=== PATIENT | female | born 1955 | race Caucasian/White ===

== ENCOUNTER → 2018-03-03 15:15 | Outpatient (CLI) | payer OTHER, SELFPAY | PROVIDERS: Visit Provider Obstetrics & Gynecology | DX: Z12.4 Encounter for screening for malignant neoplasm of cervix (principal) | CPT/HCPCS: 88175; G0145 ==

== ENCOUNTER 2025-05-04 10:26 | Day surgery (SDC) | payer MEDICARE, OTHER, SELFPAY ==
[2025-05-04] VITALS (11 sets, daily range): BP systolic 97–134; BP diastolic 65–91; PULSE 82–89; RESP 16; TEMP 36.1–36.6; O2SAT 92–100; BMI 40.8
--- NOTE | 2025-05-04 10:43 | PCM.PRE.AN2 ---
ASA Classification* ASA Classification ASA Classification: 2 Assessment & Plan Anesthesia* Anesthesia Assessment Anesthesia Assessment: Discussed sedation and/or anesthesia options, risks, benefits, and alternatives with patient/parents/legal guardian/POA. Questions invited. The patient/parents/legal guardian/POA seems to understand and agrees to proceed with anesthesia plan. Reviewed the physical assessment, medical history, allergy history and patient home medications list prior to surgery/procedure/anesthetic and documented any changes. Performed airway and anesthesia risk assessments. 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 When Was Last Pacemaker Check QUESTION #4 FULL TEXT: You/Your Family Experience fever (hyperthermia) with Anesthesia Last Oral Intake Last Oral intake: Last Oral Intake NPO since Meds taken in AM with sips of water? Meds patient instructed to take am of surgery PONV PONV - technical services assistant: PONV - technical services assistant Female Yes 04/28/25 15:26 HX of Motion Sickness Yes 04/28/25 15:26 HX of N/V After Surgery Yes 04/28/25 15:26 Non-Smoker Yes 04/28/25 15:26 Duration of Surgery greater Yes 04/28/25 15:26 than 60 minutes Number of Risk Factors 5 04/28/25 15:26 PONV Score Severe Risk 04/28/25 15:26 Height & Weight Height & Weight: Anesthesia: Height & Weight Height 5 ft 4 in 04/21/25 08:51 Respiratory Assessment Respiratory Assessment - technical services assistant: Respiratory Tract Infection Hx - technical services assistant Hx Respiratory Tract Infection No 04/28/25 15:26 STOP Sleep Apnea STOP Sleep Apnea - technical services assistant: STOP Sleep Apnea - technical services assistant Hx Hypertension Yes: CONTROLLED ON MED 04/28/25 15:26 Hx Sleep Apnea No 04/28/25 15:26 CPAP BIPAP Do you snore loudly (louder Yes 04/28/25 15:26 than talking or can be heard Do you often feel tired/ No 04/28/25 15:26 fatigued/ sleepy during daytime? Has anyone observed you stop No 04/28/25 15:26 breathing during sleep? STOP Results Positive 04/28/25 15:26 QUESTION #5 FULL TEXT : Do you snore loudly (louder than talking or can be heard through closed doors)? 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 Specify any problems Hx of Preganancy in last 3 No 04/28/25 15:26 Months Nurse Filling Out Transfusion VCHRISTIN 04/28/25 15:26 & Questions: Date: 04/28/25 04/28/25 15:26 Time: 15:27 04/28/25 15:26 Patient unable to answer at this time (ie. confused, unrespo /Reproduction History /Reproductive History - technical services assistant: /Reproductive Hx- technical services assistant Hx Now No 04/28/25 15:26 Gestational Age (in weeks): EDC: Hx Hx Para Hx Section SAB No 04/28/25 15:26 Active Medications Active Medications: Current Medications Generic Name Dose Route Start Last Admin Trade Name Freq PRN Reason Stop Dose Admin Cefazolin Sodium 2 gm/ Sodium 110 mls @ 200 mls/hr 05/04/25 12:45 Chloride IV 05/04/25 13:17 INTRAOP ONE Lactated Ringer's 1,000 mls @ 15 mls/hr 05/04/25 10:45 IV .Q48H LASHAWN PFSH Medical History Wears glasses Post-menopausal Cancer Depression Seizures Gastric reflux Non-smoker Shortness of breath on exertion Chronic cough Leg cramps Thyroid disease Acid reflux HTN (hypertension) Home Medications ?Medication ?Instructions ?Recorded ?Last Taken ?Type eye vitamins/variety 1 tab PO DAILY 04/21/25 Unknown History levothyroxine 100 mcg capsule 100 mcg PO QDAY 04/21/25 Unknown History lisinopril 10 mg tablet 10 mg PO 1700 04/21/25 Unknown History lisinopril 20 mg tablet 20 mg PO QDAY 04/21/25 Unknown History metaluka vitamins 1 tab PO DAILY 04/21/25 Unknown History vitamin B comp and C no.3 15 mg-10 1 cap PO QDAY 04/21/25 Unknown History mg-50 mg-5 mg-300 mg capsule (B Complex Plus Vitamin C) Allergy/AdvReac Type Severity Reaction Status Date / Time No Known Allergies Allergy Verified 04/28/25 15:11 Family History Mother Breast cancer Hypertension Sister Diabetes Thyroid disorder Hypertension Surgical History Hx of tonsillectomy Hx of eye surgery H/O: hysterectomy Social History Smoking Status: Never smoker alcohol intake: never Review of Systems (Anesthesia) ROS Narrative System reviewed and no additional complaints, except as documented.
--- OUTSIDE RECORDS SUMMARY | 2025-05-04 10:54 | XMS RPT_ITS | CCD ---
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 Unclassified (13 sources) MCR Well Adult - In general the patient feels well with no complaints. The patient has a balanced diet. The patient exercises none (Active) and sleeps 8 hours per night. The patient denies having trouble with bathing, dressing/grooming, toileting, preparing meals and ambulating. The patient denies having trouble with grocery shopping, driving, use of telephone, housework, laundry, preparing/taking medications and finances. The patient does not perform monthly breast self exam. 05-25-2024 Unclassified (5 sources) Follow up for multiple chronic conditions - The patient is here for follow-up of GERD, hypertension, hypothyroidism, obesity and seizure disorder. The patient always takes the prescribed medications. No side effects noted. The patient engages in regular exercise program 1-3 times per week. The patient's out of office blood pressure checks occur rarely. The patient states that they do not have headaches. Note for Multiple chronic conditions follow-up: reviewed by [facility] 11-16-2024 Past or Other Problems Problem Classification Problem Date Documented Da te Episodic/Chronic Unclassified (18 sources) MCR Well Adult - In general the patient feels well with minor complaints (complains of diarrhea for the past two days.), has good energy level and is sleeping well. The patient has a balanced diet and takes supplemental vitamins. The patient does not exercise and sleeps 7 hours per night. The patient denies having trouble with bathing, dressing/grooming, toileting, preparing meals and ambulating. The patient denies having trouble with grocery shopping, driving, use of telephone, housework, laundry, preparing/taking medications and finances. The patient performs monthly self breast exam (is past due for mammogram). The patient has a Healthcare Power of Global Program Manager and a Living Will. 05-26-2023 Unclassified (18 sources) Well Adult, female - The patient feels well with no complaints, has good energy level and is sleeping well. The patient has a balanced diet and takes supplemental vitamins. The patient does not exercise. The patient sleeps 8 hours per night. 05-15-2022 Unclassified (18 sources) Preoperative Clearance - Surgical procedure(s) planned: other (Has a diagnosis of Glaucome, treatment plan: trabeculectomy.). Date of procedure: (06-21-20) Surgeon: (Dr Dale) and Location of procedure: ([facility]) Note for Pre-operative clearance: reviewed by [facility] 06-07-2020 Unclassified (18 sources) Preoperative Clearance - Surgical procedure(s) planned: other (glaucoma surgery revision). Date of procedure: (10-04-19) Location of procedure: ([facility]) There have been no problems with general anesthesia or blood/blood products. Prosthetics include eye glasses. Note for Pre-operative clearance: reviewed by [facility] 09-29-2019 Unclassified (18 sources) Preoperative Clearance - Surgical procedure(s) planned: other (Glaucoma). Date of procedure: (01/04/19) Surgeon: (Dr. Dale) and Location of procedure: ([facility]) There have been no problems with general anesthesia or blood/blood products. Prosthetics include eye glasses. Note for Pre-operative clearance: reviewed by [facility] 12-28-2018 Unclassified (8 sources) Transition into care - The patient is transitioning into care from a hospital and a summary of care was reviewed . 04-05-2016 Unclassified (8 sources) [ADDITIONAL REASON] Follow up consultation - The patient is here to follow-up after hospitalization ([facility]. Had total hysterectomy due to Uterine Cancer. Was hving Post [place] bleeding. SHe had this done 03/11/[address] Castano. She has a f/u visit with him on Friday but ptstates she neds nothing further done.). There is a family history of breast cancer (mom and father had lung cancer.). Note for Consultation follow-up: Pt denies any lower abdominal discomfort and incision healed well. They did give her a back brace to wear which she does wear most of time. reviewed by [facility] 04-05-2016 Unclassified (18 sources) Vaginal bleeding - The bleeding has been occurring in an intermittent pattern for 1 week. The bleeding has been described as spotting. The symptoms have been associated with abdominal cramps (on the first day of spotting.) and hot flashes (at times), while the symptoms have not been associated with dizziness. Note for Vaginal bleeding: Menopause was 10 years ago. reviewed by [facility] 01-03-2016 Unclassified (18 sources) Abdominal pain - The onset of the abdominal pain has been acute and has been occurring in a persistent pattern for 1 week. The course has been recurrent. The pain is described as a moderate sharp pain, dull ache and cramping. The pain is located in the epigastrium (area varies). The symptoms are aggravated by meals (2 to 4 hours after eating) but have no relieving factors. There has been no associated nausea or vomiting (a week ago x 3.). Note for Abdominal pain: reviewed by [facility] 11-29-2015 Unclassified (18 sources) Preoperative Clearance - Surgical procedure(s) planned: other (Cataract). Date of procedure: (07-27-14) Surgeon: (Dr Kayla Dale.) and Location of procedure: ([facility] be done at [facility] There have been no problems with general anesthesia or blood/blood products. Prosthetics include eye glasses. Note for Pre-operative clearance: reviewed by [facility] 07-13-2014 Unclassified (18 sources) seizure disorder - Would like form filled out to continue driving. Has hx of seizures for many years but well controlled. It has malina years since last seizure. Last seizure 2000, on no meds for many years 07-04-2010 Unclassified (10 sources) Follow up consultation - The patient is here to follow-up after hospitalization ([facility]. Had total hysterectomy due to Uterine Cancer. Was hving Post [place]ap[place]a bleeding. SHe had this done 03/11/[address] Castano. She has a f/u visit with him on Friday but ptstates she neds nothing further done.). There is a family history of breast cancer (mom and father had lung cancer.). Note for Consultation follow-up: Pt denies any lower abdominal discomfort and incision healed well. They did give her a back brace to wear which she does wear most of time. reviewed by B 04-05-2016 Unclassified (10 sources) [ADDITIONAL REASON] Transition into care - The patient is transitioning into care from a hospital and a summary of care was reviewed . 04-05-2016 Results Test Name Value Interpretation Reference Range Facility Supplemental Reporton 2024 Supplemental Report . Pathology Reports Accession: Collected Date/Time: Received Date/Time: Pathologist: [id number] 04/12/2025 13:50 EDT 04/13/2025 09:50 EDT GIOVANI WONG MD Supplemental Report SUPPLEMENTAL: [facility] [address] [place] [address] HER2 FISH Analysis Clinical summary and Indication: Body Site: Comment: FINAL HER2 INTERPRETATION: In conjunction with the equivocal (2+) HER2 Immunostain result provided, the final HER2 interpretation of this specimen is NEGATIVE (in accordance with ASCO/CAP guidelines). HER2 FISH Results: Interpretation: Negative Number of tumor cells counted: 20 + 20 Number of observers: 2 Average HER2 Copy number: 2.48 Average CEP17 copy number: 2.15 Ratio of average HER2/CEP17: 1.2 Sample adequate for analysis: Yes Complete report scanned into chart. Verified by Diagnostic interpretation performed at [facility] GIOVANI WONG Sign out Date: 05/02/2025 16:09 Performing Lab: [facility], [address] [place] [address] Pathology Dept Final Surgical Pathology Report DIAGNOSIS: LEFT BREAST MASS AT 10:00, NEEDLE CORE BIOPSY: - INVASIVE GRADE 1 DUCTAL CARCINOMA Breast Biomarker Reporting Template TEST(S) PERFORMED: ESTROGEN RECEPTOR (ER) STATUS: POSITIVE (greater than 10% of cells demonstrate nuclear positivity) PERCENTAGE OF CELLS WITH NUCLEAR POSITIVITY: 91-100% AVERAGE INTENSITY OF STAINING: Strong PROGESTERONE RECEPTOR (PGR) STATUS: POSITIVE PERCENTAGE OF CELLS WITH NUCLEAR POSITIVITY: 81-90% AVERAGE INTENSITY OF STAINING: Strong HER2 BY IMMUNOHISTOCHEMISTRY: EQUIVOCAL (Score 2+) COLD ISCHEMIA AND FIXATION TIMES: Meet requirements specified in latest version of the ASCO / CAP Guidelines, unless otherwise specified in the gross description. COMMENT(S): Test types for ER, KS and Her2: All FDA cleared, Vendor: [id number]. Primary antibody clones: ER: SP1, KS:1E2, Her2:4B5; Detection system: [employer] Pathology Reports Accession: Collected Date/Time: Received Date/Time: Pathologist: [id number] 04/12/2025 13:50 EDT 04/13/2025 09:50 EDT GIOVANI WONG MD DIAGNOSIS: If specimens were decalcified, loss of immunoreactivity may occur; negative results should be interpreted with caution. Isolated KS positivity (in the absence of ER staining) at low levels is not a reproducible result, could be an artifact, and may not be clinically significant. Invasive carcinomas with 1 to 10% of cells staining for ER (not PgR) are reported as Low Positive and the following comment is applicable: There are limited data on the overall benefit of endocrine therapies for patients with low level (1-10%) ER expression but they currently suggest possible benefit, so patients are considered eligible for endocrine treatment. There are data that suggest invasive cancers with these results are heterogeneous in both behavior and biology and often have gene expression profiles more similar to ER negative cancers. [employer] NURSE TUMOR BLOCK(S): 1 COMMENT: [facility]# [id number] CLINICAL INFORMATION: 4 B- MODERATE SUSPICION FOR MALIGNANCY LEFT BREAST AT SITE OF PRIOR BX IN 2011 SPECIMEN: A LEFT BREAST MASS 10:00 POSITION GROSS DESCRIPTION: All parts labelled with patient name and [id number] Received in formalin labeled L breast at 10 o'clock position are 6 noel-pink cores and fragments ranging in size from 0.8 to 1.9 cm. Specimen removed from patient at 1350 p.m. and placed in formalin fixative at 1350 p.m. Cold ischemia time is less than 1 minute and total time in formalin fixative is 35.5 hours. TS-2 Kristin Gastelum, Grossing Personnel Manager/ Dr. Giovani Wong, Pathologist Performed by Kristin Gastelum MICROSCOPIC DESCRIPTION: The microscopic examination is performed, except in the case of Gross Only. Verified by Pathology Report verified by [facility] GIOVANI WONG Sign out Date: 04/15/2025 13:20 Performing Lab: [facility], [address] [place] [address] Pathology Dept Disclaimer If ancillary studies were utilized, the following Laboratory Developed Test (LDT) disclaimer will apply: Under CLIA requirements, [facility] is qualified to perform high complexity testing. For all ancillary stains, positive and negative controls stain appropriately. Performance characteristics of immunohistochemical and chromogenic in-situ hybridization tests have been determined by [facility]. These tests are used for clinical purposes, They should not be regarded as investigational or for research. Normal [facility] MA[facility] Surgery Visit Reporton 04-21 Surgery Visit Report [facility] [address] [place] [address] [address] [place] [id number] OFFICE VISIT Date of Service: 04/21/25 MR#: [id number] Acct: [id number] Name: JESSICA ARMENDARIZ Rep #: [id number] : 1955 Provider: Dr. Mohan thompson MD Age/Sex: 69/F Location: [facility] Status: Signed Intake Vital Signs 04/21/25 08:51 Height 5 ft 4 in Weight: 241 lb BMI 41.3 BP 134/90 H Blood Pressure Location Rt brachial Position Sitting Respiration 17 Pulse 87 Pulse Source Monitor Pulse Oximetry (%) 98 Oxygen Delivery Method room air Intake Visit Reasons: DISCUSS BREAST SURGERY Chief Complaint: discuss breast surgery Is patient in pain?: No Allergies No Known Allergies Allergy (Verified 04/21/25 08:53) Medications ???Medication ???Instructions ???Recorded ???Confirmed ???Type eye vitamins/variety PO 04/21/25 History levothyroxine 100 mcg capsule 100 mcg PO QDAY 04/21/25 04/21/25 History lisinopril 10 mg tablet 10 mg PO QDAY 04/21/25 04/21/25 Hi story lisinopril 20 mg tablet 20 mg PO QDAY 04/21/25 04/21/25 Hi story metaluka vitamins PO 04/21/25 04/21/25 History vitamin B comp and C no.3 15 mg-10 1 cap PO QDAY 04/21/25 04/21/25 History mg-50 mg-5 mg-300 mg capsule (B Complex Plus Vitamin C) Have you fallen in the past year?: No PFSH Medical History (Updated 04/21/25 @ 08:50 by Mayela Frias) Thyroid disease Acid reflux HTN (hypertension) Surgical History (Updated 04/21/25 @ 08:50 by Mayela Frias) H/O: hysterectomy Family History (Updated 04/21/25 @ 08:51 by Mayela Frias) Mother Breast cancer Hypertension Sister Diabetes Thyroid disorder Hypertension Social History (Updated 04/21/25 @ 08:51 by Mayela Frias) Smoking Status: Never smoker alcohol intake: never HPI HPI HPI: Patient is a 69-year-old female with left breast cancer. Patient was biopsied at outside hospital and found to have invasive ductal carcinoma of the left breast at the 10 o'clock position. Patient notes that she does have a family history of breast cancer in her mother who at a young age. She has had a breast biopsy in the past as well. ROS General General: Yes breast cancer; No weight change, appetite, fatigue, colon cancer or weakness HEENT HEENT: Yes eye surgery; No difficulty swallowing, eye injury, swollen glands or hoarseness Endo Endocrine: Yes thyroid disease; No diabetes mellitus, thyroid cancer, Hair loss, heat intolerance or cold intolerance Skin Skin: No rash or changing moles Breast Breast: Yes left breast lump and abnormal US; No right breast lump, nipple discharge, breast pain, abnormal mammogram or breast enlargement Additional Details: Left breast cancer invasive ductal Musc Musculoskeletal: No back problems, arthritis, rheumatoid arthritis, gout or joint pain Cardio Cardiovascular: Yes high blood pressure; No murmur, pacemaker, heart disease, atrial fibrillation, heart attack, heart stent, palpitations, shortness of breath with exertion or chest pain Psych Psychiatric: No depression, anxiety or hearing voices Resp Respiratory: No shortness of breath, No sleep apnea, No cough, No COPD, No asthma, No emphysema and No wheezing Gastro Gastrointestinal: No abdominal pain, No nausea or vomiting, No diarrhea, No constipation, No blood in stool, Yes acid reflux, No hemorrhoids, No ulcers, No gallbladder problem and No black,tarry stools Bao Hematologic: No blood thinners, No blood disorders, No bleeding, No anemia and No blood clots Neuro Neurologic: No system reviewed and no additional complaints, except as documented, No as per HPI, No abnormal gait, No abnormal hearing, No abnormal movements, No abnormal speech, No behavioral changes, No burning sensations, No confusion, No convulsions, No disequilibrium, No dizziness, No localized weakness, No frequent falls, No headache(s), No lack of coordination, No loss of vision, No memory loss, No numbness, No other visual disturbances, No radicular pain, No restless legs, No sensory deficit, No syncope, No tingling, No tremor(s), No weakness and No other Exam Const General: cooperative Orientation: alert and oriented x3 HENWA Head: normal to inspection Neck Neck: normal visual inspection and full ROM Chest Chest palpation inspection: normal inspection of the chest Resp Effort Inspection: normal respiratory effort Auscultation: clear to auscultation bilaterally Cardio Rate: regular rate Rhythm: regular rhythm GI Inspection: non-distended Palpation: soft and nontender Skin General: no rashes or lesions noted Neuro General: patient alert and patient oriented x3 Extrem General: full ROM Psych Appearance: grossly normal Mental Status: mental status grossly normal (more content not included)... Normal [facility] Final Surgical Pathology Rep [facility] 04-15-2025 Final Surgical Pathology Report . Pathology Reports Accession: Collected Date/Time: Received Date/Time: Pathologist: [id number] 04/12/2025 13:50 EDT 04/13/2025 09:50 EDT GIOVANI WONG MD Final Surgical Pathology Report DIAGNOSIS: LEFT BREAST MASS AT 10:00, NEEDLE CORE BIOPSY: - INVASIVE GRADE 1 DUCTAL CARCINOMA Breast Biomarker Reporting Template TEST(S) PERFORMED: ESTROGEN RECEPTOR (ER) STATUS: POSITIVE (greater than 10% of cells demonstrate nuclear positivity) PERCENTAGE OF CELLS WITH NUCLEAR POSITIVITY: 91-100% AVERAGE INTENSITY OF STAINING: Strong PROGESTERONE RECEPTOR (PGR) STATUS: POSITIVE PERCENTAGE OF CELLS WITH NUCLEAR POSITIVITY: 81-90% AVERAGE INTENSITY OF STAINING: Strong HER2 BY IMMUNOHISTOCHEMISTRY: EQUIVOCAL (Score 2+) COLD ISCHEMIA AND FIXATION TIMES: Meet requirements specified in latest version of the ASCO / CAP Guidelines, unless otherwise specified in the gross description. COMMENT(S): Test types for ER, KS and Her2: All FDA cleared, Vendor: [id number]. Primary antibody clones: ER: SP1, KS:1E2, Her2:4B5; Detection system: [employer] If specimens were decalcified, loss of immunoreactivity may occur; negative results should be interpreted with caution. Isolated KS positivity (in the absence of ER staining) at low levels is not a reproducible result, could be an artifact, and may not be clinically significant. Invasive carcinomas with 1 to 10% of cells staining for ER (not PgR) are reported as Low Positive and the following comment is applicable: There are limited data on the overall benefit of endocrine therapies for patients with low level (1-10%) ER expression but they currently suggest possible benefit, so patients are considered eligible for endocrine treatment. There are data that suggest invasive cancers with these results are heterogeneous in both behavior and biology and often have gene expression profiles more similar to ER negative cancers. [employer] NURSE TUMOR BLOCK(S): 1 COMMENT: [facility]# [id number] CLINICAL INFORMATION: 4 B- MODERATE SUSPICION FOR MALIGNANCY LEFT BREAST AT SITE OF PRIOR BX IN 2011 SPECIMEN: A LEFT BREAST MASS 10:00 POSITION GROSS DESCRIPTION: All parts labelled with patient name and [id number] Received in formalin labeled L breast at 10 o'clock position are 6 noel-pink cores and fragments ranging in size from 0.8 to 1.9 cm. Specimen removed from patient at 1350 p.m. and placed in formalin fixative at 1350 p.m. Cold ischemia time is less than 1 minute and total time in formalin fixative is 35.5 hours. TS-2 Pathology Reports Accession: Collected Date/Time: Received Date/Time: Pathologist: [id number] 04/12/2025 13:50 EDT 04/13/2025 09:50 GIOVANI CASTELLANO MD GROSS DESCRIPTION: Kristin Gastelum Grossing Personnel Manager/ Dr. Giovani Wong, Pathologist Performed by Kristin Gastelum MICROSCOPIC DESCRIPTION: The microscopic examination is performed, except in the case of Gross Only. Verified by Pathology Report verified by [facility] GIOVANI WONG Sign out Date: 04/15/2025 13:20 Performing Lab: [facility], [address] [place] [address] Pathology Dept Disclaimer If ancillary studies were utilized, the following Laboratory Developed Test (LDT) disclaimer will apply: Under CLIA requirements, [facility] Laboratory is qualified to perform high complexity testing. For all ancillary stains, positive and negative controls stain appropriately. Performance characteristics of immunohistochemical and chromogenic in-situ hybridization tests have been determined by [facility]. These tests are used for clinical purposes, They should not be regarded as investigational or for research. Normal [facility] MA[facility] LT MAMM CLIP PLACEMENTon LT MAMM CLIP PLACEMENT [address] ? [place] [address] ? Patient: JESSICA ARMENDARIZ Phone#: : 1955 Age: 69 Gender: F Pt. Type: Out Account: [id number] Location: [facility] Ordering: PIETRO LITTLEJOHN Exam Date: 04/12/2025/14:28 Family Phys: Charge Code: [id number] Physician: Whiteside Order #: [id number] Dose#: PROCEDURE: LEFT MAMMOGRAM CLIP PLACEMENT COMPARISON: [facility], , 3D UNILAT LT DIAGNOSTIC, 03/21/2025, 10:09. INDICATIONS: S/P LEFT BREAST CORE BIOPSY FINDINGS: LEFT BREAST: A ribbon shaped metallic marker is present in the superomedial breast. There is an adjacent barbell shaped biopsy marker from prior biopsy. CONCLUSION: Postprocedure mammogram for biopsy marker placement PLEASE NOTE: CLICK HERE IF HIGH RISK A NORMAL MAMMOGRAM DOES NOT EXCLUDE THE POSSIBILITY OF BREAST CANCER. A CLINICALLY SUSPICIOUS PALPABLE LUMP SHOULD BE BIOPSIED. THIS FACILITY UTILIZES A REMINDER SYSTEM TO ENSURE THAT ALL PATIENTS RECEIVE REMINDER LETTERS FOR APPOINTMENTS. THIS INCLUDES REMINDERS FOR ROUTINE MAMMOGRAMS, DIAGNOSITC MAMMOGRAMS, OR OTHER BREAST IMAGING INTERVENTIONS WHEN APPROPRIATE. THIS PATIENT WILL BE PLACED IN THE APPROPRIATE REMINDER SYSTEM. Dictated by: Kelsey Alegria MD on 04/12/2025 at 16:42 Approved by: Kelsey Alegria MD on 04/12/2025 at 16:43 Normal [facility] US CORE BX BREAST LEFT 1ST L ESIONon 04-12-2025 US CORE BX BREAST LEFT 1ST LESION [address] ? [place], [place] [address] ? Patient: JESSICA ARMENDARIZ Phone#: : 1955 Age: 69 Gender: F Pt. Type: Out Account: [id number] Location: [facility] Ordering: PIETRO LITTLEJOHN Exam Date: 04/12/2025/12:47 Family Phys: Charge Code: [id number] Physician: Whiteside Order #: [id number] Dose#: This report includes an Addendum and supersedes previous reports for this exam. PROCEDURE: PERCUTANEOUS LT BREAST ULTRASOUND GUIDED BIOPSY COMPARISON: None. INDICATIONS: Left breast mass DESCRIPTION: After explaining the procedure and risks to the patient, informed consent was obtained. Ultrasound was used to localize the lesion. The skin was marked. The skin was prepped and draped in the usual sterile fashion. An ultrasound-guided biopsy was performed in the usual sterile manner with tissue marker placement. FINDINGS: SPECIMEN #, LOCATION: Lesion in the 10 o'clock position measuring 1.3 x 1.4 cm. Six passes were performed. BIOPSY NEEDLE: 12 gauge Achieve? core biopsy needle. MARKERS(S) PLACED: A single ribbon shaped metallic marker was placed in the appropriate targeted location. MEDICATION: 2% lidocaine with epinephrine administered locally. 2% lidocaine administered superficially. COMPLICATIONS: None. PATHOLOGY LAB: Specimen submitted to pathology. CONCLUSION: Uneventful ultrasound-guided breast biopsy. The patient was instructed to obtain follow up care and biopsy results from the referring physician. An addendum to this report will be provided with radiological-pathologica l correlation after the pathology results are available. Dictated by: Kelsey Alegria MD on 04/12/2025 at 16:32 Approved by: Kelsey Alegria MD on 04/12/2025 at 16:42 ADDENDUM: Continued Report - Page 2 of 2 Patient: JESSICA ARMENDARIZ Phone#: : 1955 Age: 69 Gender: F Pt. Type: Out Account: [id number] Location: 052 Ordering: [facility] Exam Date: 04/12/2025/12:47 Family Phys: Charge Code: [id number] Physician: Whiteside Order #: [id number] Dose#: The pathology report is now available and shows malignancy (invasive grade 1 ductal carcinoma) concordant with the imaging findings. Dictated by: Kelsey Alegria MD on 04/20/2025 at 13:30 Approved by: Kelsey Alegria MD on 04/20/2025 at 13:32 Normal [facility] 3D MAMM UNILAT LT DIAGNOSTIC on 03-21-2025 3D MAMM UNILAT LT DIAGNOSTIC [place] [address] Patient: JESSICA ARMENDARIZ Phone#: : 1955 Age: 69 Gender: F Pt. Type: Out Account: [id number] Location: 052 Ordering: [facility] Exam Date: 03/21/2025/10:09 Family Phys: Charge Code: [id number] Physician: Whiteside Order #: [id number] Dose#: PROCEDURE: LEFT DIAGNOSTIC BREAST TOMOSYNTHESIS MAMMOGRAM WITH CAD COMPARISON: [facility], 3D BILAT SCREEN, 03/09/2025, 11:13. INDICATIONS: Abnormal mammogram BREAST COMPOSITION: The breasts are almost entirely fatty FINDINGS: DIAGNOSTIC CATEGORY 0--INCOMPLETE: NEED ADDITIONAL IMAGING EVALUATION. LEFT BREAST: ARCHITECTURAL DISTORTION (the normal architecture is distorted without a visible mass), characterized by spiculated suspicious morphology, mid-breast depth, 10 o'clock position, and 15 x 13 x 17 mm size. Dense central calcification is present measuring 8 x 6 millimeters. RECOMMENDATIONS: ULTRASOUND: LEFT BREAST --We will call the patient back for an ultrasound and provide an additional report. PLEASE NOTE: A NORMAL MAMMOGRAM DOES NOT EXCLUDE THE POSSIBILITY OF BREAST CANCER. A CLINICALLY SUSPICIOUS PALPABLE LUMP SHOULD BE BIOPSIED. THIS FACILITY UTILIZES A REMINDER SYSTEM TO ENSURE THAT ALL PATIENTS RECEIVE REMINDER LETTERS FOR APPOINTMENTS. THIS INCLUDES REMINDERS FOR ROUTINE MAMMOGRAMS, DIAGNOSITC MAMMOGRAMS, OR OTHER BREAST IMAGING INTERVENTIONS WHEN APPROPRIATE. THIS PATIENT WILL BE PLACED IN THE APPROPRIATE REMINDER SYSTEM. Dictated by: Charlotte Walsh MD on 03/22/2025 at 12:40 Approved by: Charlotte Walsh MD on 03/22/2025 at 12:46 Normal [facility] US BREAST LT UNILATERAL COMP LETEon 03-21-2025 US BREAST LT UNILATERAL [place] [address] Patient: JESSICA ARMENDARIZ Phone#: : 1955 Age: 69 Gender: F Pt. Type: Out Account: [id number] Location: [facility] Ordering: PIETRO LITTLEJOHN Exam Date: 03/21/2025/10:31 Family Phys: Charge Code: [id number] Physician: Whiteside Order #: [id number] Dose#: PROCEDURE: ULTRASOUND BREAST LT COMPARISON: None. INDICATIONS: Follow up mammogram. TECHNIQUE: Breast ultrasound was performed, with evaluation focusing on all four quadrants. FINDINGS: DIAGNOSTIC CATEGORY 4b-MODERATE SUSPICION FOR MALIGNANCY; SUSPICIOUS LEFT BREAST: Solid suspicious-appearing lesion, hypoechoic echotexture, mid-breast depth, 10 o'clock position, and 17 x 19 x 17 mm size. Central 7 x 9 x 8 millimeter calcification is present. Prior exams are not available for comparison. RECOMMENDATIONS: ULTRASOUND-GUIDED CORE BIOPSY: LEFT BREAST This report was communicated by telephone to Dr. Pietro Littlejohn at the dictation time indicated below. PLEASE NOTE: A NORMAL MAMMOGRAM DOES NOT EXCLUDE THE POSSIBILITY OF BREAST CANCER. A CLINICALLY SUSPICIOUS PALPABLE LUMP SHOULD BE BIOPSIED. Dictated by: Charlotte Walsh MD on 03/22/2025 at 12:48 Approved by: Charlotte Walsh MD on 03/22/2025 at 14:17 [facility] 3D MAMM BILAT SCREENon 03-09 3D MAMM BILAT SCREEN [address] [address] Patient: JESSICA ARMENDARIZ Phone#: : 1955 Age: 69 Gender: F Pt. Type: Out Account: [id number] Location: [facility] Ordering: PIETRO LITTLEJOHN Exam Date: 03/09/2025/11:13 Family Phys: Charge Code: [id number] Physician: Whiteside Order #: [id number] Dose#: PROCEDURE: BILATERAL SCREENING BREAST TOMOSYNTHESIS MAMMOGRAM WITH CAD COMPARISON: None. INDICATIONS: Screening. BREAST COMPOSITION: The breasts are almost entirely fatty FINDINGS: DIAGNOSTIC CATEGORY 0--INCOMPLETE: NEED ADDITIONAL IMAGING EVALUATION. LEFT BREAST: A metallic marker is present in the superomedial breast. Calc markers present within an area of XL calcification. There is spiculated density the radiating from the area of calcification. RIGHT BREAST: No significant suspicious finding. RECOMMENDATIONS: ADDITIONAL MAMMOGRAPHIC VIEWS REQUIRED: LEFT BREAST --We will call the patient back for additional views and issue an addendum report. ULTRASOUND: LEFT BREAST indicated depending on the results of the diagnostic mammogram. PLEASE NOTE: A NORMAL MAMMOGRAM DOES NOT EXCLUDE THE POSSIBILITY OF BREAST CANCER. A CLINICALLY SUSPICIOUS PALPABLE LUMP SHOULD BE BIOPSIED. THIS FACILITY UTILIZES A REMINDER SYSTEM TO ENSURE THAT ALL PATIENTS RECEIVE REMINDER LETTERS FOR APPOINTMENTS. THIS INCLUDES REMINDERS FOR ROUTINE MAMMOGRAMS, DIAGNOSITC MAMMOGRAMS, OR OTHER BREAST IMAGING INTERVENTIONS WHEN APPROPRIATE. THIS PATIENT WILL BE PLACED IN THE APPROPRIATE REMINDER SYSTEM. Dictated by: Kelsey Alegria MD on 03/09/2025 at 18:26 Approved by: Kelsey Alegria MD on 03/09/2025 at 18:35 Normal [facility] TSHon 11-17-2024 TSH Qn 0.71 m[IU]/L Normal 0.40-4.50 [facility] Comment on above: Performed By: #### 8 99 #### [facility] [address], [address] [place] [phone] Engineer Intern: Tyson Claudio MD Laboratory - Chemistry and C hemistry - challengeon 11-16-2024 TSH Qn 0.71 m[IU]/L Normal 0.40 - 4.50 {mIU/L} [facility] TSHon 09-02-2024 TSH Qn 0.19 m[IU]/L Low 0.40-4.50 [facility] Comment on above: Performed By: #### 8 99 #### [facility] [address], [address] [place] [address] Engineer Intern: Tyson Claudio MD Laboratory - Chemistry and C hemistry - challengeon 09-01-2024 TSH Qn 0.19 m[IU]/L Abnormal 0.40 - 4.50 {mIU/L} [facility] COMPREHENSIVE METABOLIC PANE [facility], [place]) 05-20-2024 Albumin [Mass/Vol] 4.2 g/dL Normal 3.6-5.1 [facility] Comment on above: Performed By: #### 8 , 0, 53543 #### [facility] [place] [address] Engineer Intern: Tyson Claudio MD #### XLPB #### [facility] [address] Engineer Intern: Elis Moses M.D. Albumin/Globulin [Mass ratio] 1.5 {ratio} Normal 1.0-2.5 [facility] Comment on above: Performed By: #### 8 , 0, 09538 #### [facility] [place] [address] Engineer Intern: Tyson Claudio MD #### XLPB #### [facility] [address] [place] [phone] Engineer Intern: Elis Moses M.D. ALP [Catalytic activity/Vol] 63 U/L Normal 37-153 [facility] Comment on above: Performed By: #### 8 , 7599, [address]65 #### [facility] [address], [address] [place] [address] Engineer Intern: Tyson Claudio MD #### XLPB #### [facility] [address] [place] [phone] Engineer Intern: Elis Moses M.D. ALT [Catalytic activity/Vol] 21 U/L Normal 6-29 [facility] Comment on above: Performed By: #### 8 99, 7600, 73345 #### [facility] [address], [address] [place] [address] Engineer Intern: Tyson Claudio MD #### XLPB #### [facility] [address] [place] [phone] Engineer Intern: Elis Moses M.D. AST [Catalytic activity/Vol] 17 U/L Normal 10-35 [facility] Comment on above: Performed By: #### 8 99, 0, 29902 #### [facility] [address], [address] [place] [address] Engineer Intern: Tyson Claudio MD #### XLPB #### [facility] [address] [place] [phone] Engineer Intern: Elis Moses M.D. Bilirubin [Mass/Vol] 0.5 mg/dL Normal 0.2-1.2 [facility] Comment on above: Performed By: #### 8 99, 0, 75884 #### [facility] [address], [address] [place] [address] Engineer Intern: Tyson Claudio MD #### XLPB #### [facility] [address] [place] [phone] Engineer Intern: Elis Moses M.D. BUN/CREATININE RATIO SEE NOTE: Normal 01-02 [facility] Comment on above: Result Comment: Not Reported: BUN and Creatinine are within reference range. Performed By: #### 8 99, 7600, 14730 #### [facility] [address], [address] [place], [place] [phone] Engineer Intern: Tyson Claudio MD #### XLPB #### [facility] [address] [place] [phone] Engineer Intern: Elis Moses M.D. Calcium [Mass/Vol] 9.2 mg/dL Normal 8.6-10.4 [facility] Comment on above: Performed By: #### 8 , 7599, 56499 #### [facility] [address], [address] [place], [place] [id number] Engineer Intern: Tyson Claudio MD #### XLPB #### [facility] [address] Engineer Intern: Elis Moses M.D. Chloride [Moles/Vol] 105 mmol/L Normal 98-110 [facility] Comment on above: Performed By: #### 8 , 7599, 74695 #### [facility] [place] [address] Engineer Intern: Tyson Claudio MD #### XLPB #### [facility] [place], [place] [phone] Engineer Intern: Elis Moses M.D. CO2 [Moles/Vol] 28 mmol/L Normal 20-32 [facility] Comment on above: Performed By: #### 8 , 7599, 89834 #### [facility] [address] Engineer Intern: Tyson Claudio MD #### XLPB #### [facility]-[address] [place], [place] [phone] Engineer Intern: Elis Moses M.D. Creatinine [Mass/Vol] 0.61 mg/dL Normal 0.50-1.05 [facility] Comment on above: Performed By: #### 8 , 7599, 38651 #### [facility] [address], [address] [place], [place] [phone] Engineer Intern: Tyson Claudio MD #### XLPB #### [facility]-[address] [place] [address] Engineer Intern: Elis Moses M.D. GFR/1.73 sq M.predicted among non-blacks MDRD (S/P/Bld) [Vol rate/Area] 97 mL/min/{1.73_m2} Normal > OR = 60 [facility] Comment on above: Performed By: #### 8 99, 0, 16067 #### [facility] [address], [address] [place] [address] Engineer Intern: Tyson Claudio MD #### XLPB #### [facility] [address] [place] [address] Engineer Intern: Elis Moses M.D. Globulin (S) [Mass/Vol] 2.8 g/dL Normal 1.9-3.7 [facility] Comment on above: Performed By: #### 8 , 7599, 66638 #### [facility] [address], [address] [place] [address] Engineer Intern: Tyson Claudio MD #### XLPB #### [facility] [address] [place] [address] Engineer Intern: Elis Moses M.D. Glucose [Mass/Vol] 97 mg/dL Normal 65-99 [facility] Comment on above: Result Comment: Fasting reference interval Performed By: #### 8 , 0, 35100 #### [facility] [address], [address] [place] [address] Engineer Intern: Tyson Claudio MD #### XLPB #### [facility] [address] [place] [address] Engineer Intern: Elis Moses M.D. Potassium [Moles/Vol] 4.1 mmol/L Normal 3.5-5.3 [facility] Comment on above: Performed By: #### 8 , 0, 75655 #### [facility] [address], [address] [place] [address] Engineer Intern: Tyson Claudio MD #### XLPB #### [facility] [address] Engineer Intern: Elis Moses M.D. Protein [Mass/Vol] 7.0 g/dL Normal 6.1-8.1 [facility] Comment on above: Performed By: #### 8 99, 7600, 92205 #### [facility] of [address], [address] [place] [address] Engineer Intern: Tyson Claudio MD #### XLPB #### [facility] [address] Engineer Intern: Elis Moses M.D. Sodium [Moles/Vol] 140 mmol/L Normal 135-146 [facility] Comment on above: Performed By: #### 8 99, 0, 89992 #### [facility] [address], [address] [place] [address] Engineer Intern: Tyson Claudio MD #### XLPB #### [facility] [address] [place], [place] [phone] Engineer Intern: Elis Moses M.D. Urea nitrogen [Mass/Vol] 18 mg/dL Normal 7-25 [facility] Comment on above: Performed By: #### 8 99, 0, 39612 #### [facility] [address], [address] [place] [address] Engineer Intern: Tyson Claudio MD #### XLPB #### [facility]-[address] Engineer Intern: Elis Moses M.D. EXTRA LAVENDER-TOP TUBEon COMMENT Normal [facility] Comment on above: Result Comment: An e xtra specimen was received with no test requested. The specimen will be maintained in storage in case additional testing is needed. Please call the client service department for further assistance. Performed By: #### 8 99, 7600, 68367 #### [facility] [address], [address] [place] [address] Engineer Intern: Tyson Claudio MD #### XLPB #### [facility] [address] [place] [address] Engineer Intern: Elis Moses M.D. EXTRA LAVENDER-TOP TUBE [place] [facility] Comment on above: Performed By: #### 8 99, 7600, 66844 #### [facility] [address], [address] [place] [address] Engineer Intern: Tyson Claudio MD #### XLPB #### [facility] [address] [place] [address] Engineer Intern: Elis Moses M.D. LIPID PANEL, [facility] 11-0 Cholesterol [Mass/Vol] 242 mg/dL High <200 [facility] Comment on above: Performed By: #### 8 99, 7600, 97682 #### [facility] [address], [address] [place] [address] Engineer Intern: Tyson Claudio MD #### XLPB #### [facility] [address] [place] [address] Engineer Intern: Elis Moses M.D. Cholesterol in HDL [Mass/Vol] 73 mg/dL Normal > OR = 50 [facility] Comment on above: Performed By: #### 8 99, 7600, 24419 #### [facility] [address], [address] [place] [address] Engineer Intern: Tyson Claudio MD #### XLPB #### [facility] [address] [place] [address] Engineer Intern: Elis Moses M.D. Cholesterol in LDL [Mass/Vol] 143 mg/dL High [facility] Comment on above: Result Comment: Refe rence range: <100 Desirable range <100 mg/dL for primary prevention; <70 mg/dL for patients with CHD or diabetic patients with > or = 2 CHD risk factors. LDL-C is now calculated using the Vicente-Gunderson calculation, which is a validated novel method providing better accuracy than the Friedewald equation in the estimation of LDL-C. Vicente PLUMMER et al. LAVONNE. 2013;310(19): 6834-6083 (http://education.FashFolio.Qwilr/faq/YQO123) Performed By: #### 8 , 7599, 78059 #### [facility] [address], [address] [place] [address] Engineer Intern: Tyson Claudio MD #### XLPB #### [facility] [address] [place] [address] Engineer Intern: Elis Moses M.D. Cholesterol.total/ Cholesterol in HDL [Mass ratio] 3.3 {ratio} Normal <5.0 [facility] Comment on above: Performed By: #### 8 , 7599, 37735 #### [facility] [address], [address] [place] [address] Engineer Intern: Tyson Claudio MD #### XLPB #### [facility] [address] [place] [address] Engineer Intern: Elis Moses M.D. NON HDL CHOLESTEROL 169 mg/dL (calc) High <130 [facility] Comment on above: Result Comment: For patients with diabetes plus 1 major ASCVD risk factor, treating to a non-HDL-C goal of <100 mg/dL (LDL-C of <70 mg/dL) is considered a therapeutic option. Performed By: #### 8 , 7599, 53673 #### [facility] [address], [address] [place] [address] Engineer Intern: Tyson Claudio MD #### XLPB #### [facility] [address] [place], [place] [phone] Engineer Intern: Elis Moses M.D. Triglyceride [Mass/Vol] 133 mg/dL Normal <150 [facility] Comment on above: Performed By: #### 8 , 7599, 89028 #### [facility] [address], [address] [place] [address] Engineer Intern: Tyson Claudio MD #### XLPB #### [facility] [address] [place] [address] Engineer Intern: Elis Moses M.D. [facility] Qn 0.15 m[IU]/L Low 0.40-4.50 [facility] Comment on above: Performed By: #### 8 99, 5950, 05525 #### [facility] [address] [facility], [address] [place] [address] Engineer Intern: Tyson Claudio MD #### XLPB #### [facility] [address] [place] [address] Engineer Intern: Elis Moses M.D. Laboratory - Chemistry and C hemistry - challenge 05-19-2024 Albumin [Mass/Vol] 4.2 g/dL Normal 3.6 - 5.1 g/dL [employer], [employer] Albumin/Globulin [Mass ratio] 1.5 {ratio} Normal 1.0 - 2.5 [employer], [employer] ALP [Catalytic activity/Vol] 63 U/L Normal 37 - 153 U/L [employer] ALT [Catalytic activity/Vol] 21 U/L Normal 6 - 29 U/L [employer] AST [Catalytic activity/Vol] 17 U/L Normal 10 - 35 U/L [employer] Bilirubin [Mass/Vol] 0.5 mg/dL Normal 0.2 - 1.2 mg/dL [employer], [employer] Calcium [Mass/Vol] 9.2 mg/dL Normal 8.6 - 10. 4 mg/dL [employer] Chloride [Moles/Vol] 105 mmol/L Normal 98 - 110 mmol/L [employer] Cholesterol [Mass/Vol] 242 mg/dL Abnormal [facility], [facility].; [employer] [facility]. Cholesterol in HDL [Mass/Vol] 73 mg/dL Normal [facility].; [facility]. Cholesterol in LDL [Mass/Vol] 143 mg/dL Abnormal [facility].; [employer] [facility], [employer]. CO2 [Moles/Vol] 28 mmol/L Normal 20 - 32 mmol/L [facility].; [facility]. Creatinine [Mass/Vol] 0.61 mg/dL Normal 0.50 - 1.05 mg/dL [facility].; [employer] [facility], [facility]. GFR/1.73 sq M.predicted among non-blacks MDRD (S/P/Bld) [Vol rate/Area] 97 mL/min/{1.73_m2} Normal [facility].; [employer], [employer]. Glucose [Mass/Vol] 97 mg/dL Normal 65 - 99 mg/dL [facility].; [employer], [facility]. Potassium [Moles/Vol] 4.1 mmol/L Normal 3.5 - 5.3 mmol/L [facility].; [employer], [employer]. Protein [Mass/Vol] 7.0 g/dL Normal 6.1 - 8.1 g/dL [facility].; [employer], [employer]. Sodium [Moles/Vol] 140 mmol/L Normal 135 - 146 mmol/L [facility].; [employer], [employer]. Triglyceride [Mass/Vol] 133 mg/dL Normal [facility].; [employer], [facility]. TSH Qn 0.15 m[IU]/L Abnormal 0.40 - 4.50 {mIU/L} [facility].; [employer], [employer]. Urea nitrogen [Mass/Vol] 18 mg/dL Normal 7 - 25 mg/dL [employer] [facility].; [employer]. No Panel Informationon 05-19 [id number] SEE NOTE Normal [employer] Work Phone: BUN/CREATININE RATIO SEE NOTE: Normal 6 - 22 [facility] [employer].; [employer]. CHOL/HDLC RATIO 3.3 Normal [facility].; [employer] EXTRA LAVENDER-TOP TUBE See Below Normal [facility].; [employer] Work Phone: GLOBULIN 2.8 Normal 1.9 - 3.7 [facility].; [employer] NON HDL CHOLESTEROL 169 Abnormal [facility].; [employer], [employer]. Laboratory - Chemistry and C hemistry - challengeon 05-13-2023 Albumin [Mass/Vol] 4.1 g/dL Normal 3.6 - 5.1 g/dL [facility].; [employer], [employer]. Albumin/Globulin [Mass ratio] 1.6 {ratio} Normal 1.0 - 2.5 [facility].; [employer]. ALP [Catalytic activity/Vol] 64 U/L Normal 37 - 153 U/L [facility].; [employer], [employer]. ALT [Catalytic activity/Vol] 20 U/L Normal 6 - 29 U/L [facility].; [employer], [employer]. AST [Catalytic activity/Vol] 16 U/L Normal 10 - 35 U/L [facility].; [employer], [employer]. Bilirubin [Mass/Vol] 0.5 mg/dL Normal 0.2 - 1.2 mg/dL [facility].; [employer], [employer]. Calcium [Mass/Vol] 9.2 mg/dL Normal 8.6 - 10. 4 mg/dL [facility].; [employer], [employer]. Chloride [Moles/Vol] 105 mmol/L Normal 98 - 110 mmol/L [facility].; [employer], [employer]. Cholesterol [Mass/Vol] 242 mg/dL Abnormal [employer] [facility].; [employer], [employer]. Cholesterol in HDL [Mass/Vol] 70 mg/dL Normal [facility].; [employer], [employer]. Cholesterol in LDL [Mass/Vol] 141 mg/dL Abnormal [employer] [facility].; [employer]. CO2 [Moles/Vol] 27 mmol/L Normal 20 - 32 mmol/L [facility], [facility]. Creatinine [Mass/Vol] 0.59 mg/dL Normal 0.50 - 1.05 mg/dL [facility].; [facility], [facility]. GFR/1.73 sq M.predicted among non-blacks MDRD (S/P/Bld) [Vol rate/Area] 98 mL/min/{1.73_m2} Normal [facility].; [facility], [facility] Glucose [Mass/Vol] 93 mg/dL Normal 65 - 99 mg/dL [facility], [facility]. Potassium [Moles/Vol] 4.3 mmol/L Normal 3.5 - 5.3 mmol/L [facility]; [facility], [facility]. Protein [Mass/Vol] 6.7 g/dL Normal 6.1 - 8.1 g/dL [facility].; [facility], [facility]. Sodium [Moles/Vol] 141 mmol/L Normal 135 - 146 mmol/L [facility].; [facility], [facility]. Triglyceride [Mass/Vol] 173 mg/dL Abnormal [facility]; [facility], [facility]. TSH Qn 0.31 m[IU]/L Abnormal 0.40 - 4.50 {mIU/L} [facility].; [facility], [facility]. Urea nitrogen [Mass/Vol] 14 mg/dL Normal 7 - 25 mg/dL [facility].; [facility], [facility]. No Panel Informationon 05-13 BUN/CREATININE RATIO SEE NOTE: Normal 6 - 22 [facility].; [facility], [facility]. CHOL/HDLC RATIO 3.5 Normal [facility].; [facility], [facility]. GLOBULIN 2.6 Normal 1.9 - 3.7 [facility] [facility], [facility]. NON HDL CHOLESTEROL 172 Abnormal [facility], [facility]. Laboratory - Chemistry and C hemistry - challengeon 05-08-2022 Albumin [Mass/Vol] 4.2 g/dL Normal 3.6 - 5.1 g/dL [facility], [facility].; [facility], [facility]. Albumin/Globulin [Mass ratio] 1.5 {ratio} Normal 1.0 - 2.5 [facility], [facility].; [facility], [facility]. ALP [Catalytic activity/Vol] 65 U/L Normal 37 - 153 U/L [facility], [facility].; [facility], [facility]. ALT [Catalytic activity/Vol] 20 U/L Normal 6 - 29 U/L [facility], [facility].; [facility], [facility]. AST [Catalytic activity/Vol] 16 U/L Normal 10 - 35 U/L [facility], [facility].; [facility], [facility]. Bilirubin [Mass/Vol] 0.5 mg/dL Normal 0.2 - 1.2 mg/dL [facility], [facility].; [facility], [facility]. Calcium [Mass/Vol] 9.3 mg/dL Normal 8.6 - 10. 4 mg/dL [facility], [facility].; [facility], [facility]. Chloride [Moles/Vol] 105 mmol/L Normal 98 - 110 mmol/L [facility], [facility].; [facility], [facility]. Cholesterol [Mass/Vol] 264 mg/dL Abnormal [facility], [facility].; [facility], [facility]. Cholesterol in HDL [Mass/Vol] 62 mg/dL Normal [facility], [facility].; [facility], [facility]. Cholesterol in LDL [Mass/Vol] 166 mg/dL Abnormal [facility], [facility].; [facility], [facility]. CO2 [Moles/Vol] 25 mmol/L Normal 20 - 32 mmol/L [facility], [facility].; [facility], [facility]. Creatinine [Mass/Vol] 0.57 mg/dL Normal 0.50 - 1.05 mg/dL [facility], [facility].; [facility], [facility]. GFR/1.73 sq M.predicted among non-blacks MDRD (S/P/Bld) [Vol rate/Area] 100 mL/min/{1.73_m2} Normal [facility], [facility].; [facility] Glucose [Mass/Vol] 100 mg/dL Abnormal 65 - 99 mg/dL [facility]; [facility] Potassium [Moles/Vol] 4.3 mmol/L Normal 3.5 - 5.3 mmol/L [facility]; [facility] Protein [Mass/Vol] 7.0 g/dL Normal 6.1 - 8.1 g/dL [facility]; [facility] Sodium [Moles/Vol] 140 mmol/L Normal 135 - 146 mmol/L [facility]; [facility] Triglyceride [Mass/Vol] 199 mg/dL Abnormal [facility]; [facility] TSH Qn 0.52 m[IU]/L Normal 0.40 - 4.50 {mIU/L} [facility]; [facility] Urea nitrogen [Mass/Vol] 16 mg/dL Normal 7 - 25 mg/dL [facility]; [facility] No Panel Informationon 05-08 BUN/CREATININE RATIO NOT APPLICABLE Normal 6 - 22 [facility]; [facility] CHOL/HDLC RATIO 4.3 Normal [facility]; [facility] GLOBULIN 2.8 Normal 1.9 - 3.7 [facility]; [facility] NON HDL CHOLESTEROL [address] [facility]; [facility] Laboratory - Chemistry and C hemistry - challengeon 04-18-2021 Albumin [Mass/Vol] 4.2 g/dL Normal 3.6 - 5.1 g/dL [facility]; [facility] Albumin/Globulin [Mass ratio] 1.6 {ratio} Normal 1.0 - 2.5 [facility]; [facility] ALP [Catalytic activity/Vol] 66 U/L Normal 37 - 153 U/L [facility]; [facility] ALT [Catalytic activity/Vol] 18 U/L Normal 6 - 29 U/L [facility]; [facility] AST [Catalytic activity/Vol] 17 U/L Normal 10 - 35 U/L [facility], [facility].; [facility], [facility]. Bilirubin [Mass/Vol] 0.6 mg/dL Normal 0.2 - 1.2 mg/dL [facility], [facility].; [facility], [facility]. Calcium [Mass/Vol] 9.5 mg/dL Normal 8.6 - 10. 4 mg/dL [facility], [facility].; [facility], [facility] Chloride [Moles/Vol] 106 mmol/L Normal 98 - 110 mmol/L [facility], [facility].; [facility], [facility]. Cholesterol [Mass/Vol] 229 mg/dL Abnormal [facility], [facility] Cholesterol in HDL [Mass/Vol] 71 mg/dL Normal [facility]; [facility], [facility] Cholesterol in LDL [Mass/Vol] 133 mg/dL Abnormal [facility], [facility].; [facility], [facility]. CO2 [Moles/Vol] 23 mmol/L Normal 20 - 32 mmol/L [facility], [facility].; [facility], [facility]. Creatinine [Mass/Vol] 0.62 mg/dL Normal 0.50 - 0.99 mg/dL [facility], [facility].; [facility], [facility]. GFR/1.73 sq M.predicted among blacks MDRD (S/P/Bld) [Vol rate/Area] 109 mL/min/{1.73_m2} Normal [facility], [facility].; [facility], [facility] Glucose [Mass/Vol] 94 mg/dL Normal 65 - 99 mg/dL [facility] Potassium [Moles/Vol] 3.9 mmol/L Normal 3.5 - 5.3 mmol/L [facility], [facility].; [facility], [facility] Protein [Mass/Vol] 6.9 g/dL Normal 6.1 - 8.1 g/dL [facility], [facility].; [facility] Sodium [Moles/Vol] 139 mmol/L Normal 135 - 146 mmol/L [facility], [facility].; [facility] Triglyceride [Mass/Vol] 135 mg/dL Normal [facility]; [facility] TSH Qn 0.22 m[IU]/L Abnormal 0.40 - 4.50 {mIU/L} [facility]; [facility] Urea nitrogen [Mass/Vol] 17 mg/dL Normal 7 - 25 mg/dL [facility]; [facility] No Panel Informationon 04-18 BUN/CREATININE RATIO NOT APPLICABLE Normal 6 - 22 [facility]; [facility] CHOL/HDLC RATIO 3.2 Normal [facility]; [facility] eGFR NON-AFR. IRISH [address] [facility]; [facility] GLOBULIN 2.7 Normal 1.9 - 3.7 [facility]; [facility] NON HDL CHOLESTEROL [address] [facility]; [facility] Laboratory - Chemistry and C hemistry - challengeon 03-22-2020 Albumin [Mass/Vol] 4.2 g/dL Normal 3.6 - 5.1 g/dL [facility]; [facility] Albumin/Globulin [Mass ratio] 1.7 {ratio} Normal 1.0 - 2.5 [facility]; [facility] ALP [Catalytic activity/Vol] 66 U/L Normal 37 - 153 U/L [facility]; [facility] ALT [Catalytic activity/Vol] 17 U/L Normal 6 - 29 U/L [facility]; [facility]. AST [Catalytic activity/Vol] 15 U/L Normal 10 - 35 U/L [facility]; [facility] Bilirubin [Mass/Vol] 0.5 mg/dL Normal 0.2 - 1.2 mg/dL [facility]; [facility], [facility] Calcium [Mass/Vol] 9.3 mg/dL Normal 8.6 - 10. 4 mg/dL [facility]; [facility] Chloride [Moles/Vol] 107 mmol/L Normal 98 - 110 mmol/L [facility], [facility].; [facility], [facility]. Cholesterol [Mass/Vol] 245 mg/dL Abnormal [facility], [facility]. Cholesterol in HDL [Mass/Vol] 72 mg/dL Normal [facility], [facility].; [facility], [facility]. Cholesterol in LDL [Mass/Vol] 151 mg/dL Abnormal [facility], [facility].; [facility], [facility] CO2 [Moles/Vol] 25 mmol/L Normal 20 - 32 mmol/L [facility], [facility].; [facility], [facility]. Creatinine [Mass/Vol] 0.67 mg/dL Normal 0.50 - 0.99 mg/dL [facility], [facility].; [facility], [facility]. GFR/1.73 sq M.predicted among blacks MDRD (S/P/Bld) [Vol rate/Area] 107 mL/min/{1.73_m2} Normal [facility], [facility].; [facility], [facility]. Glucose [Mass/Vol] 92 mg/dL Normal 65 - 99 mg/dL [facility].; [employer] [facility], [facility]. Potassium [Moles/Vol] 4.2 mmol/L Normal 3.5 - 5.3 mmol/L [facility].; [facility], [facility]. Protein [Mass/Vol] 6.7 g/dL Normal 6.1 - 8.1 g/dL [facility], [facility].; [employer], [facility]. Sodium [Moles/Vol] 141 mmol/L Normal 135 - 146 mmol/L [facility], [facility].; [facility] Triglyceride [Mass/Vol] 107 mg/dL Normal [facility], [facility].; [employer] [facility], [facility]. TSH Qn 0.49 m[IU]/L Normal 0.40 - 4.50 {mIU/L} [facility].; [employer] [facility], [facility]. Urea nitrogen [Mass/Vol] 18 mg/dL Normal 7 - 25 mg/dL [facility], [facility].; [employer], [facility]. No Panel Informationon 03-22 BUN/CREATININE RATIO NOT APPLICABLE Normal 6 - 22 [facility].; [facility] CHOL/HDLC RATIO 3.4 Normal [facility].; [facility], [facility] eGFR NON-AFR. IRISH [address] [facility]; [facility] GLOBULIN 2.5 Normal 1.9 - 3.7 [facility]; [facility], [facility] NON HDL CHOLESTEROL [address] [facility]; [facility], [facility] Laboratory - Chemistry and C hemistry - challengeon 09-30-2018 Calcium [Mass/Vol] 9.1 mg/dL Normal 8.6 - 10. 4 mg/dL [facility]; [facility], [facility] Chloride [Moles/Vol] 106 mmol/L Normal 98 - 110 mmol/L [facility]; [facility], [facility] CO2 [Moles/Vol] 27 mmol/L Normal 20 - 32 mmol/L [facility]; [facility], [facility] Creatinine [Mass/Vol] 0.57 mg/dL Normal 0.50 - 0.99 mg/dL [facility], [facility]. GFR/1.73 sq M.predicted among blacks MDRD (S/P/Bld) [Vol rate/Area] 114 {ML/MIN/1.73M2} Normal [facility].; [facility], [facility]. GFR/1.73 sq M.predicted MDRD (S/P/Bld) [Vol rate/Area] 98 {ML/MIN/1.73M2} Normal [facility].; [facility], [facility] Glucose [Mass/Vol] 98 mg/dL Normal 65 - 99 mg/dL [facility].; [facility], [facility]. Potassium [Moles/Vol] 4.2 mmol/L Normal 3.5 - 5.3 mmol/L [facility], [facility]. Sodium [Moles/Vol] 140 mmol/L Normal 135 - 146 mmol/L [facility], [facility].; [facility], [facility] TSH Qn 2.17 m[IU]/L Normal 0.40 - 4.50 {mIU/L} [facility], [facility]. Urea nitrogen [Mass/Vol] 18 mg/dL Normal 7 - 25 mg/dL [facility].; [employer] [facility], [facility]. Urea nitrogen/Creatinin e [Mass ratio] 31.4 mg/mg Abnormal [facility].; [employer], [facility]. Laboratory - Chemistry and C hemistry - challengeon 10-02-2017 Anion gap [Moles/Vol] 12 mmol/L Normal 10 - 20 mmol/L [facility].; [employer] [facility], [facility]. Basic metabolic 2000 panel BMP with eGFR Normal [facility].; [employer] [facility], [facility]. Calcium [Mass/Vol] 9.4 mg/dL Normal 8.6 - 10. 2 mg/dL [facility].; [employer], [employer]. Chloride [Moles/Vol] 105 mmol/L Normal 98 - 107 mmol/L [facility].; [employer] [facility], [employer]. CO2 [Moles/Vol] 28.3 mmol/L Normal 21.0 - 31.0 mmol/L [facility].; [employer] [facility], [facility]. Creatinine [Mass/Vol] 0.6 mg/dL Normal 0.6 - 1.2 mg/dL [facility].; [employer] [facility], [facility]. GFR/1.73 sq M.predicted among blacks MDRD (S/P/Bld) [Vol rate/Area] mL/min/{1.73_m2} Normal 60 - 999 {ML/MINUTE} [facility], [facility].; [employer] [facility], [facility]. GFR/1.73 sq M.predicted MDRD (S/P/Bld) [Vol rate/Area] mL/min/{1.73_m2} Normal 60 - 999 {ML/MINUTE} [facility], [facility].; [employer] Glucose [Mass/Vol] 87 mg/dL Normal 74 - 106 mg/dL [facility], [facility].; [employer], [employer] Potassium [Moles/Vol] 4.6 mmol/L Normal 3.5 - 5.1 mmol/L [facility].; [employer], [employer] Sodium [Moles/Vol] 141 mmol/L Normal 136 - 145 mmol/L [facility].; [employer], [employer]. TSH Qn 1.31 m[IU]/L Normal 0.34 - 5.60 {uIU/ml} [facility].; [employer], [employer]. Urea nitrogen [Mass/Vol] 18 mg/dL Normal 6 - 20 mg/dL [facility], [facility].; [employer], [employer]. No Panel Informationon 10-02 AGE 62 {years} Normal [facility].; [employer], [employer]. Laboratory - Chemistry and C hemistry - challengeon 10-02-2016 Anion gap [Moles/Vol] 13 mmol/L Normal 10 - 20 mmol/L [employer], [employer]. Basic metabolic 2000 panel BMP with eGFR Normal [employer] [facility].; [employer], [employer] Calcium [Mass/Vol] 9.4 mg/dL Normal 8.6 - 10. 2 mg/dL [employer] [facility].; [employer] Chloride [Moles/Vol] 102 mmol/L Normal 98 - 107 mmol/L [employer].; [employer], [employer]. CO2 [Moles/Vol] 27.0 mmol/L Normal 21.0 - 31.0 mmol/L [employer] [facility], [employer].; [employer], [employer] Creatinine [Mass/Vol] 0.6 mg/dL Normal 0.6 - 1.2 mg/dL [employer] [facility], [facility].; [employer], [employer] GFR/1.73 sq M.predicted among blacks MDRD (S/P/Bld) [Vol rate/Area] mL/min/{1.73_m2} Normal 60 - 999 {ML/MINUTE} [employer], [employer], [employer] GFR/1.73 sq M.predicted MDRD (S/P/Bld) [Vol rate/Area] mL/min/{1.73_m2} Normal 60 - 999 {ML/MINUTE} [employer] Glucose [Mass/Vol] 92 mg/dL Normal 74 - 106 mg/dL [employer], [facility].; [facility] Potassium [Moles/Vol] 4.5 mmol/L Normal 3.5 - 5.1 mmol/L [facility]; [facility] Sodium [Moles/Vol] 137 mmol/L Normal 136 - 145 mmol/L [facility]; [facility] TSH Qn 3.76 m[IU]/L Normal 0.34 - 5.60 {uIU/ml} [facility]; [employer] Urea nitrogen [Mass/Vol] 18 mg/dL Normal 6 - 20 mg/dL [facility]; [employer] No Panel Informationon 10-02 AGE 61 {years} Normal [facility]; [employer] [facility] Laboratory - Chemistry and C hemistry - challengeon 11-01-2015 TSH Qn 1.13 m[IU]/L Normal 0.34 - 5.60 {uIU/ml} [facility]; [employer] Laboratory - Chemistry and C hemistry - challengeon 11-02-2014 TSH Qn 2.06 m[IU]/L Normal 0.34 - 5.60 {uIU/ml} [facility].; [employer]. Laboratory - Chemistry and C hemistry - challengeon 09-12-2014 Basic metabolic 2000 panel BMP with eGFR Normal [facility]; [employer] Work Phone: Calcium [Mass/Vol] 9.3 mg/dL Normal 8.6 - 10. 2 mg/dL [facility]; [employer]. Work Phone: Chloride [Moles/Vol] 105 mmol/L Normal 98 - 107 mmol/L [facility]; [employer] Work Phone: CO2 [Moles/Vol] 28.0 mmol/L Normal 13.0 - 29.0 mmol/L [facility]; [employer] Work Phone: Creatinine [Mass/Vol] 0.6 mg/dL Normal 0.6 - 1.2 mg/dL [facility].; [employer] [facility] Work Phone: GFR/1.73 sq M.predicted among blacks MDRD (S/P/Bld) [Vol rate/Area] mL/min/{1.73_m2} Normal 60 - 999 {ML/MINUTE} [facility].; [facility] Work Phone: GFR/1.73 sq M.predicted MDRD (S/P/Bld) [Vol rate/Area] mL/min/{1.73_m2} Normal 60 - 999 {ML/MINUTE} [facility].; [employer] [facility]. Work Phone: Glucose [Mass/Vol] 95 mg/dL Normal 74 - 106 mg/dL [facility].; [employer] Work Phone: Potassium [Moles/Vol] 4.0 mmol/L Normal 3.5 - 5.1 mmol/L [facility]; [employer] [facility] Work Phone: Sodium [Moles/Vol] 139 mmol/L Normal 136 - 145 mmol/L [facility]; [employer] [facility]. Work Phone: Urea nitrogen [Mass/Vol] 15 mg/dL Normal 6 - 20 mg/dL [facility].; [employer] [facility]. Work Phone: No Panel Informationon 09-12 AGE 59 {years} Normal [facility]; [employer] [facility] Work Phone: Laboratory - Chemistry and C hemistry - challengeon 11-01-2013 TSH Qn 1.06 m[IU]/L Normal 0.34 - 5.60 {uIU/ml} [facility].; [employer] [facility] Laboratory - Chemistry and C hemistry - challengeon 10-26-2012 Albumin [Mass/Vol] 4.6 g/dL Normal 3.5 - 5.0 g/dL [facility]; [facility], [facility]. Albumin/Globulin [Mass ratio] 1.7 {ratio} Abnormal [facility], [facility]. ALP [Catalytic activity/Vol] 58 U/L Normal 50 - 136 U/L [facility].; [facility], [facility]. ALT [Catalytic activity/Vol] 26 mmol/L Normal 12 - 49 mmol/L [facility].; [facility], [facility]. AST [Catalytic activity/Vol] 21 U/L Normal 15 - 37 U/L [facility], [facility]. Bilirubin [Mass/Vol] 0.6 mg/dL Normal 0.3 - 1.0 mg/dL [facility].; [facility], [facility]. Calcium [Mass/Vol] 9.8 mg/dL Normal 8.4 - 10. 6 mg/dL [facility], [facility]. Chloride [Moles/Vol] 106 mmol/L Normal 98 - 110 mmol/L [facility].; [facility], [facility]. Cholesterol [Mass/Vol] 248 mg/dL Abnormal 0 - 200 mg/dL [facility].; [facility], [facility]. Cholesterol in HDL [Mass/Vol] 71 mg/dL Abnormal 40 - 60 mg/dL [facility].; [employer] [facility], [facility]. Cholesterol in LDL [Mass/Vol] 154 mg/dL Abnormal 50.0 - 130.0 mg/dL [facility].; [facility], [facility]. Cholesterol in VLDL [Mass/Vol] - Normal [facility].; [facility] [facility], [facility]. Cholesterol.total/ Cholesterol in HDL [Mass ratio] 3.5 {ratio} Normal 0 - 5.0 [facility].; [facility], [facility]. CO2 [Moles/Vol] 29.0 {barbara/L} Normal 22.0 - 32.0 {barbara/L} [facility], [facility].; [place] [employer] [facility], [facility]. Creatinine [Mass/Vol] 0.7 mg/dL Normal 0.6 - 1.4 mg/dL [facility].; [facility] Globulin (S) [Mass/Vol] 2.7 g/dL Normal 1.5 - 3.8 g/dL [facility]; [facility] Glucose [Mass/Vol] 85 mg/dL Normal 75 - 105 mg/dL [facility]; [facility] Potassium [Moles/Vol] 4.3 mmol/L Normal 3.50 - 5.00 meq/L [facility]; [facility] Protein [Mass/Vol] 7.3 g/dL Normal 6.4 - 8.2 g/dL [facility]; [facility] Sodium [Moles/Vol] 141 mmol/L Normal 136 - 145 mmol/L [facility]; [facility] Triglyceride [Mass/Vol] 117 mg/dL Normal 40 - 150 mg/dL [facility]; [facility] TSH Qn 1.34 mU/mL Normal 0.35 - 5.5 mU/mL [facility]; [facility] Urea nitrogen [Mass/Vol] 19 mg/dL Normal 7.0 - 20.0 mg/dL [facility]; [facility] Urea nitrogen/Creatinin e [Mass ratio] 27 mg/mg Normal 0 - 30 [facility]; [facility] No Panel Informationon 10-26 GFR 86 Normal [facility]; [facility] GFR2 - Normal [facility]; [facility] Laboratory - Chemistry and C hemistry - challengeon 10-21-2011 Bilirubin Ql (U) Negative Normal [facility]; [facility] [employer] [facility] Ketones Ql (U) Negative Normal [facility]; [place] [facility] [facility]. pH (U) 6.5 [pH] Normal 4.6 - 8.0 [facility]; [place] [facility] [facility] Specific gravity (U) [Rel density] 1.030 Abnormal 1.001 - 1.025 [facility]; [facility] Laboratory - Hematology and Cell countson 10-21-2011 Hemoglobin Ql (U) Negative Normal [facility].; [employer] Laboratory - Specimen inform ationon 10-21-2011 Appearance (U) Clear Normal [facility].; [employer]. Color (U) Yellow Normal [facility] [employer] [facility].; [place]. Laboratory - Urinalysison Glucose Test strip (U) [Mass/Vol] Negative Normal [facility].; [employer]. Leukocyte esterase Test strip Ql (U) Negative Normal [employer].; [employer], [employer]. Nitrite Ql (U) Negative Normal [facility] [employer].; [employer]. Protein Ql (U) Negative Normal [facility].; [employer]. No Panel Informationon 10-20 UA - UROBILINOGEN 0.2 mg/dL Normal [employer].; [place]. Laboratory - Chemistry and C hemistry - challengeon 03-27-2011 TSH Qn 0.97 m[IU]/L Normal 0.40 - 4.50 {mIU/L} [facility] [employer] [facility].; [place] Laboratory - Chemistry and C hemistry - challengeon 11-07-2010 Calcium [Mass/Vol] 10.0 mg/dL Normal 8.6 - 10. 2 mg/dL [facility].; [place]. Chloride [Moles/Vol] 103 mmol/L Normal 98 - 110 mmol/L [employer].; [employer], [employer]. CO2 [Moles/Vol] 25 mmol/L Normal 21 - 33 mmol/L [employer].; [employer], [employer]. Creatinine [Mass/Vol] 0.71 mg/dL Normal 0.60 - 1.10 mg/dL [employer].; [employer], [employer]. GFR/1.73 sq M.predicted among blacks MDRD (S/P/Bld) [Vol rate/Area] 110 {ML/MIN/1.73M2} Normal [facility] [employer].; [facility] GFR/1.73 sq M.predicted MDRD (S/P/Bld) [Vol rate/Area] 95 {ML/MIN/1.73M2} Normal [facility]; [facility] Glucose [Mass/Vol] 98 mg/dL Normal 65 - 99 mg/dL [facility]; [facility] Potassium [Moles/Vol] 4.2 mmol/L Normal 3.5 - 5.3 mmol/L [facility]; [facility] Sodium [Moles/Vol] 141 mmol/L Normal 135 - 146 mmol/L [facility]; [facility] TSH Qn 9.28 m[IU]/L Abnormal 0.40 - 4.50 {mIU/L} [facility]; [facility] Urea nitrogen [Mass/Vol] 21 mg/dL Normal 7 - 25 mg/dL [facility]; [facility] Urea nitrogen/Creatinin e [Mass ratio] 29.3 mg/mg Abnormal 6 - 22 [facility]; [facility] Laboratory - Chemistry and C hemistry - challengeon 05-09-2010 TSH Qn 4.73 m[IU]/L Abnormal 0.40 - 4.50 {mIU/L} [facility]; [facility] Vital Signs Date Time Vital Sign Value Performing Clinician Facility 04-21-2025 08:51-0400 Body height 162.[address] Pietro Littlejohn MD Work Phone: [facility] 04-21-2025 08:51-0400 Body mass index (BMI) [Ratio] 41.3 kg/m2 Dr. Pietro Littlejohn MD Work Phone: [facility] 04-21-2025 08:51-0400 Body weight 109.[address] Pietro Littlejohn MD Work Phone: [facility] 04-21-2025 08:51-0400 Diastolic blood pressure 90 mm[Hg] Dr. Pietro Littlejohn MD Work Phone: [facility] 04-21-2025 08:51-0400 Heart rate 87 /min Dr. Pietro Littlejohn MD Work Phone: [facility] 04-21-2025 08:51-0400 Respiratory rate 17 /min Dr. Pietro Littlejohn MD Work Phone: [facility] 04-21-2025 08:51-0400 SaO2% (BldA) [Mass fraction] 98 % Dr. Pietro Littlejohn MD Work Phone: [facility] 04-21-2025 08:51-0400 Systolic blood pressure 134 mm[Hg] Dr. Pietro Littlejohn MD Work Phone: [facility] 11-16-2024 09:02-0400 Body height 161.29 cm Abdelrahman Kong LPN [facility], [facility].; [facility], [facility]. 11-16-2024 09:02-0400 Body mass index (BMI) [Ratio] 42.02 kg/m2 Abdelrahman Kong DELIVERY ASSOCIATE [facility], [facility].; [facility], [facility]. 11-16-2024 09:02-0400 Body surface area Derived from formula 2.11 m2 Abdelrahman Dilan DELIVERY ASSOCIATE [facility], [facility].; [facility], [facility]. 11-16-2024 09:02-0400 Body weight 109.32 kg Abdelrahman Kong DELIVERY ASSOCIATE [facility], [facility].; [facility], [facility]. 11-16-2024 09:02-0400 Diastolic blood pressure 89 mm[Hg] Abdelrahman Kong LPN [facility], [facility].; [facility], [facility]. Comment on above: Patient Position: Sitting; Cuff Location : Left Arm; Cuff Size: Standard 11-16-2024 09:02-0400 Heart rate 91 /min Abdelrahman Kong DELIVERY ASSOCIATE [facility], [facility].; [place] [employer] [facility], [facility]. Comment on above: Pattern: Regular 11-16-2024 09:02-0400 Systolic blood pressure 138 mm[Hg] Abdelrahman Kong LPN [facility] [place] [employer] [facility], [facility]. Comment on above: Patient Position: Sitting; Cuff Location : Left Arm; Cuff Size: Standard 05-25-2024 08:51-0500 Body height 161.29 cm Abdelrahman Kong LETICIA [facility] 05-25-2024 08:51-0500 Body mass index (BMI) [Ratio] 41.15 kg/m2 Abdelrahman Kong DELIVERY ASSOCIATE [facility].; [facility] 05-25-2024 08:51-0500 Body surface area Derived from formula 2.09 m2 Abdelrahmanliz Kong [facility], [facility].; [facility] 05-25-2024 08:51-0500 Body weight 107.05 kg Abdelrahmanliz Kong [facility], [facility].; [facility], [facility]. 05-25-2024 08:51-0500 Diastolic blood pressure 82 mm[Hg] Abdelrahmanliz Kong [facility], [facility].; [employer] [facility], Inc[facility] Comment on above: Patient Position: Sitting; Cuff Location : Left Arm; Cuff Size: Standard 05-25-2024 08:51-0500 Heart rate 83 /min Abdelrahman Kong [facility], [facility].; [employer] [facility], Inc[facility] Comment on above: Pattern: Regular 05-25-2024 08:51-0500 Systolic blood pressure 124 mm[Hg] Abdelrahman Kong [facility], [facility].; [facility] Comment on above: Patient Position: Sitting; Cuff Location : Left Arm; Cuff Size: Standard 11-24-2023 11:07-0400 Body height 161.29 cm Mayela Garduno Sona DELIVERY ASSOCIATE [facility] 11-24-2023 11:07-0400 Body mass index (BMI) [Ratio] 40.63 kg/m2 Jeanne Sona DELIVERY ASSOCIATE [facility].; [facility] 11-24-2023 11:07-0400 Body surface area Derived from formula 2.08 m2 Jeanne Stuckey DELIVERY ASSOCIATE [facility].; [place] [employer] [facility], Inc. 11-24-2023 11:07-0400 Body weight 105.69 kg JeanneLaureen Magallanes DELIVERY ASSOCIATE [facility].; [employer] [facility], Inc. 11-24-2023 11:07-0400 Diastolic blood pressure 79 mm[Hg] Mayela Magallanes LPN [facility], [facility].; [employer], [employer]. Comment on above: Patient Position: Sitting; Cuff Location : Left Arm; Cuff Size: Large 11-24-2023 11:07-0400 Heart rate 97 /min Mayela Magallanes DELIVERY ASSOCIATE [facility].; [employer], [employer]. Comment on above: Pattern: Regular 11-24-2023 11:07-0400 Systolic blood pressure 129 mm[Hg] Mayela Magallanes LPN [facility] [employer], [employer]. Comment on above: Patient Position: Sitting; Cuff Location : Left Arm; Cuff Size: Large 05-26-2023 09:16-0500 Body height 161.29 cm Mayela Magallanes DELIVERY ASSOCIATE [facility] [employer], [employer] 05-26-2023 09:16-0500 Body mass index (BMI) [Ratio] 39.23 kg/m2 Mayela Magallanes [facility], [facility].; [employer], [employer] 05-26-2023 09:16-0500 Body surface area Derived from formula 2.04 m2 Mayela Magallanes DELIVERY ASSOCIATE [facility].; [employer], [employer] 05-26-2023 09:16-0500 Body weight 102.06 kg Mayela Magallanes DELIVERY ASSOCIATE [facility].; [employer], [employer] 05-26-2023 09:16-0500 Diastolic blood pressure 89 mm[Hg] Mayela Magallanes LPN [facility] [employer], [employer]. Comment on above: Patient Position: Sitting; Cuff Location : Left Arm; Cuff Size: Large 05-26-2023 09:16-0500 Heart rate 92 /min JeanneLaureen Magallanes [facility], Inc.; [employer], [employer]. Comment on above: Pattern: Regular 05-26-2023 09:16-0500 Systolic blood pressure 125 mm[Hg] Mayela [facility].; [employer], [employer]. Comment on above: Patient Position: Sitting; Cuff Location : Left Arm; Cuff Size: Large 11-13-2022 13:52-0400 Body height 161.29 cm Zoraida Lee LPN [facility], [facility].; [place] [employer] [facility], Inc[facility] 11-13-2022 13:52-0400 Body mass index (BMI) [Ratio] 36.79 kg/m2 Zoraida Lee LPN [facility].; [employer] [facility], [facility]. 11-13-2022 13:52-0400 Body surface area Derived from formula 1.99 m2 Zoraida Lee LPN [facility], [facility].; [facility] [employer] [facility], [facility]. 11-13-2022 13:52-0400 Body weight 95.71 kg Zoraida Lee LPN [facility], [facility].; [employer], [employer]. 11-13-2022 13:52-0400 Diastolic blood pressure 76 mm[Hg] Zoraida Lee LPN [facility], [facility].; [employer], [employer]. Comment on above: Patient Position: Sitting; Cuff Location : Left Arm; Cuff Size: Standard 11-13-2022 13:52-0400 Heart rate 85 /min Zoraida Lee LPN [facility], [facility].; [employer], [employer]. Comment on above: Pattern: Regular 11-13-2022 13:52-0400 Systolic blood pressure 130 mm[Hg] Zoraida Lee LPN [facility], [facility].; [employer], [employer]. Comment on above: Patient Position: Sitting; Cuff Location : Left Arm; Cuff Size: Standard 05-15-2022 11:41-0400 Body height 161.29 cm Mayela Magallanes LPN [facility], [facility].; [employer], [employer]. 05-15-2022 11:41-0400 Body mass index (BMI) [Ratio] 37.66 kg/m2 Mayela Magallanes DELIVERY ASSOCIATE [facility].; [employer], [employer] 05-15-2022 11:41-0400 Body surface area Derived from formula 2.01 m2 Jeanne Sona DELIVERY ASSOCIATE [facility], [facility].; [employer], [employer]. 05-15-2022 11:41-0400 Body weight 97.98 kg Mayela Magallanes LPN [facility].; [employer], [employer]. 05-15-2022 11:41-0400 Diastolic blood pressure 75 mm[Hg] Mayela Magallanes LPN [facility] [employer], [employer] Comment on above: Patient Position: Sitting; Cuff Location : Left Arm; Cuff Size: Large 05-15-2022 11:41-0400 Heart rate 84 /min Mayela Magallanes LPN [facility] [employer], [employer] Comment on above: Pattern: Regular 05-15-2022 11:41-0400 Systolic blood pressure 128 mm[Hg] Mayela Magallanes LPN [facility] [employer], [employer] Comment on above: Patient Position: Sitting; Cuff Location : Left Arm; Cuff Size: Large 11-21-2021 08:20-0400 Body height 161.29 cm Chrissy Rabago [facility] [employer], [employer] 11-21-2021 08:20-0400 Body mass index (BMI) [Ratio] 36.79 kg/m2 Chrissy Rabago [facility] [employer] [facility], Inc.; [employer], [employer] 11-21-2021 08:20-0400 Body surface area Derived from formula 1.99 m2 Chrissy Rabago [facility] [employer] [facility], Inc.; [employer], [employer] 11-21-2021 08:20-0400 Body weight 95.71 kg Chrissy Rabago [facility], [facility].; [employer], [employer] 11-21-2021 08:20-0400 Diastolic blood pressure 74 mm[Hg] [facility]issy Danr [facility] [employer] [facility], [employer].; [employer], [employer] Comment on above: Patient Position: Sitting; Cuff Location : Right Arm; Cuff Size: Large 11-21-2021 08:20-0400 Heart rate 84 /min Chrissy Danr [facility], [employer].; [employer], [employer] Comment on above: Pattern: Regular 11-21-2021 08:20-0400 Systolic blood pressure 118 mm[Hg] Chrissy Danr [employer] [facility], [facility].; [employer] [facility], [employer]. Comment on above: Patient Position: Sitting; Cuff Location : Right Arm; Cuff Size: Large 04-25-2021 11:03-0400 Body height 161.29 cm Phoebe Ivey DELIVERY ASSOCIATE [facility], [facility].; [employer] 04-25-2021 11:03-0400 Body mass index (BMI) [Ratio] 37.31 kg/m2 Phoebe Gatesugg DELIVERY ASSOCIATE [facility] [employer] [facility], Inc.; [employer], [facility]. 04-25-2021 11:03-0400 Body surface area Derived from formula 2 m2 Phoebe Ivey [facility] [employer] [facility], [facility].; [employer], [facility]. 04-25-2021 11:03-0400 Body weight 97.07 kg Phoebe Ivey DELIVERY ASSOCIATE [employer] [facility], [facility].; [employer], [facility]. 04-25-2021 11:03-0400 Diastolic blood pressure 83 mm[Hg] Phoebe Gatesugg DELIVERY ASSOCIATE [employer] [facility], [facility].; [employer], [employer]. Comment on above: Patient Position: Sitting; Cuff Location : Left Arm; Cuff Size: Standard 04-25-2021 11:03-0400 Heart rate 87 /min Phoebe Ivey DELIVERY ASSOCIATE [employer] [facility], [facility].; [employer] Comment on above: Pattern: Regular 04-25-2021 11:03-0400 Systolic blood pressure 122 mm[Hg] Phoebe Ivey DELIVERY ASSOCIATE [employer] [facility], Inc.; [employer], [employer]. Comment on above: Patient Position: Sitting; Cuff Location : Left Arm; Cuff Size: Standard 11-01-2020 09:42-0400 Body height 161.29 cm Pietro Littlejohn MD Work Phone: [employer], [employer].; [employer], [employer]. 11-01-2020 09:42-0400 Body mass index (BMI) [Ratio] 35.74 kg/m2 Pietro Littlejohn MD Work Phone: [employer], [employer].; [employer] 11-01-2020 09:42-0400 Body surface area Derived from formula 1.97 m2 Pietro Littlejohn MD Work Phone: [facility] [place] [employer] 11-01-2020 09:42-0400 Body weight 92.99 kg Pietro Littlejohn MD Work Phone: [facility].; [place] [employer]. 11-01-2020 09:42-0400 Diastolic blood pressure 76 mm[Hg] Pietro Littlejohn MD Work Phone: [facility].; [employer]. Comment on above: Patient Position: Sitting; Cuff Location : Left Arm; Cuff Size: Standard 11-01-2020 09:42-0400 Heart rate 81 /min Pietro Littlejohn MD Work Phone: [facility].; [employer]. Comment on above: Pattern: Regular 11-01-2020 09:42-0400 Systolic blood pressure 118 mm[Hg] Pietro Littlejohn MD Work Phone: [facility].; [employer]. Comment on above: Patient Position: Sitting; Cuff Location : Left Arm; Cuff Size: Standard 06-07-2020 13:02-0500 Body height 161.29 cm Mayela Escobedouckey [facility], [facility].; [employer]. 06-07-2020 13:02-0500 Body mass index (BMI) [Ratio] 35.4 kg/m2 Jeanne Sona [facility], Inc.; [employer], [employer]. 06-07-2020 13:02-0500 Body surface area Derived from formula 1.96 m2 Jeanne Stuckey [facility] [employer] [facility], [facility].; [employer]. 06-07-2020 13:02-0500 Body temperature 97.6 [degF] Jeanne Sona [facility] [employer] [facility].; [employer]. Comment on above: Method: Tympanic 06-07-2020 13:02-0500 Body weight 92.08 kg Jeanne [place] [facility], Inc.; [employer], [employer]. 06-07-2020 13:02-0500 Diastolic blood pressure 83 mm[Hg] Mayela Magallanes LPN [facility].; [employer] [facility], [employer]. Comment on above: Patient Position: Sitting; Cuff Location : Left Arm; Cuff Size: Large 06-07-2020 13:02-0500 Heart rate 86 /min Mayela Magallanes LPN [facility] [employer], [employer] Comment on above: Pattern: Regular 06-07-2020 13:02-0500 Systolic blood pressure 137 mm[Hg] Mayela Magallanes LPN [facility] [employer], [employer] Comment on above: Patient Position: Sitting; Cuff Location : Left Arm; Cuff Size: Large 04-19-2020 10:57-0400 Body height 161.29 cm Mayela Magallanes LPN [facility].; [employer] [facility], Inc[facility] 04-19-2020 10:57-0400 Body mass index (BMI) [Ratio] 35.57 kg/m2 Mayela Magallanes [facility], Inc.; [employer] [facility], Inc[facility] 04-19-2020 10:57-0400 Body surface area Derived from formula 1.96 m2 Mayela Magallanes DELIVERY ASSOCIATE [facility].; [employer] [facility], Inc[facility] 04-19-2020 10:57-0400 Body weight 92.53 kg Mayela Magallanes LPN [facility].; [employer] [facility], Inc. 04-19-2020 10:57-0400 Diastolic blood pressure 88 mm[Hg] Mayela Magallanes LPN [facility].; [employer], [employer]. Comment on above: Patient Position: Sitting; Cuff Location : Left Arm; Cuff Size: Large 04-19-2020 10:57-0400 Heart rate 85 /min Mayela Magallanes LPN [facility].; [employer], [employer]. Comment on above: Pattern: Regular 04-19-2020 10:57-0400 Systolic blood pressure 129 mm[Hg] Mayela Magallanes LPN [facility].; [employer], [employer] Comment on above: Patient Position: Sitting; Cuff Location : Left Arm; Cuff Size: Large 09-29-2019 09:58-0400 Body height 161.29 cm Pietro Littlejohn MD Work Phone: [employer] 09-29-2019 09:58-0400 Body mass index (BMI) [Ratio] 35.57 kg/m2 Pietro Littlejohn MD Work Phone: [employer] 09-29-2019 09:58-0400 Body surface area Derived from formula 1.96 m2 Pietro Littlejohn MD Work Phone: [employer] 09-29-2019 09:58-0400 Body temperature 98.8 [degF] Pietro Littlejohn MD Work Phone: [employer]. Comment on above: Method: Tympanic 09-29-2019 09:58-0400 Body weight 92.53 kg Pietro Littlejohn MD Work Phone: [employer]; [employer]. 09-29-2019 09:58-0400 Diastolic blood pressure 82 mm[Hg] Pietro Littlejohn MD Work Phone: [employer] Comment on above: Patient Position: Sitting; Cuff Location : Left Arm; Cuff Size: Large 09-29-2019 09:58-0400 Heart rate 87 /min Pietro Littlejohn MD Work Phone: [employer]. Comment on above: Pattern: Regular 09-29-2019 09:58-0400 Systolic blood pressure 140 mm[Hg] Pietro Littlejohn MD Work Phone: [employer]. Comment on above: Patient Position: Sitting; Cuff Location : Left Arm; Cuff Size: Large 06-30-2019 13:43-0500 Body height 161.29 cm Mayela Garduno Sona KELLY [facility] [employer] 06-30-2019 13:43-0500 Body mass index (BMI) [Ratio] 34.87 kg/m2 Mayela Magallanes LPN [facility] [facility], [facility].; [employer]. 06-30-2019 13:43-0500 Body surface area Derived from formula 1.95 m2 Mayela Magallanes LPN [facility], [facility].; [employer], [employer] 06-30-2019 13:43-0500 Body temperature 97.3 [degF] Mayela Magallanes DELIVERY ASSOCIATE [employer] [facility], [facility] Front [address]. Comment on above: Method: Tympanic 06-30-2019 13:43-0500 Body weight 90.72 kg Mayela Magallanes DELIVERY ASSOCIATE [facility], [facility] Front [address]. 06-30-2019 13:43-0500 Diastolic blood pressure 85 mm[Hg] Mayela Magallanes LPN [facility], [facility] Front [address]. Comment on above: Patient Position: Sitting; Cuff Location : Left Arm; Cuff Size: Large 06-30-2019 13:43-0500 Heart rate 94 /min Mayela Magallanes [facility], [employer].; [address]. Comment on above: Pattern: Regular 06-30-2019 13:43-0500 Inhaled oxygen concentration 21 % Mayela Magallanes [facility] Front [address]. Comment on above: Room air 06-30-2019 13:43-0500 SaO2% (BldA) [Mass fraction] 92 % Mayela Magallanes DELIVERY ASSOCIATE [facility], [facility] Front Row. 06-30-2019 13:43-0500 Systolic blood pressure 131 mm[Hg] Mayela Magallanes LPN [employer].; Front [address]. Comment on above: Patient Position: Sitting; Cuff Location : Left Arm; Cuff Size: Large 12-28-2018 13:15-0400 Body height 161.29 cm Pietro Littlejohn MD Work Phone: [employer] [address]. 12-28-2018 13:15-0400 Body mass index (BMI) [Ratio] 34.17 kg/m2 Pietro Littlejohn MD Work Phone: [address].; [address]. 12-28-2018 13:15-0400 Body surface area Derived from formula 1.93 m2 Pietro Littlejohn MD Work Phone: [address].; [address]. 12-28-2018 13:15-0400 Body temperature 97.4 [degF] Pietro Littlejohn MD Work Phone: [employer]; Front [address]. Comment on above: Method: Tympanic 12-28-2018 13:15-0400 Body weight 88.91 kg Pietro Littlejohn MD Work Phone: [employer]; [address]. 12-28-2018 13:15-0400 Diastolic blood pressure 86 mm[Hg] Pietro Littlejohn MD Work Phone: [employer]; [address]. Comment on above: Patient Position: Sitting; Cuff Location : Left Arm; Cuff Size: Standard 12-28-2018 13:15-0400 Heart rate 76 /min Pietro Littlejohn MD Work Phone: [employer]; [address]. Comment on above: Pattern: Regular 12-28-2018 13:15-0400 Inhaled oxygen concentration 21 % Pietro Littlejohn MD Work Phone: [employer]; [address]. Comment on above: Room air 12-28-2018 13:15-0400 Respiratory rate 20 /min Pietro Littlejohn MD Work Phone: [employer]; [address]. Comment on above: Pattern: Unlabored 12-28-2018 13:15-0400 SaO2% (BldA) [Mass fraction] 96 % Pietro Littlejohn MD Work Phone: [employer]; [address]. 12-28-2018 13:15-0400 Systolic blood pressure 133 mm[Hg] Pietro Littlejohn MD Work Phone: [employer]; [facility] Comment on above: Patient Position: Sitting; Cuff Location : Left Arm; Cuff Size: Standard 10-07-2018 11:37-0400 Body height 161.29 cm Mayela Magallanes DELIVERY ASSOCIATE [facility], [facility].; [employer], [employer]. 10-07-2018 11:37-0400 Body mass index (BMI) [Ratio] 34.87 kg/m2 Mayela Magallanes DELIVERY ASSOCIATE [facility], [facility] [employer], [employer] 10-07-2018 11:37-0400 Body surface area Derived from formula 1.95 m2 Mayela Magallanes DELIVERY ASSOCIATE [employer], [employer]. 10-07-2018 11:37-0400 Body weight 90.72 kg Mayela Magallanes DELIVERY ASSOCIATE [facility], [facility] [employer], [employer]. 10-07-2018 11:37-0400 Diastolic blood pressure 87 mm[Hg] Mayela Magallanes DELIVERY ASSOCIATE [employer] [facility], [facility] [employer], [employer] Comment on above: Patient Position: Sitting; Cuff Location : Left Arm; Cuff Size: Large 10-07-2018 11:37-0400 Heart rate 81 /min Mayela Magallanes DELIVERY ASSOCIATE [employer] [facility], [facility] [employer], [employer]. Comment on above: Pattern: Regular 10-07-2018 11:37-0400 Systolic blood pressure 127 mm[Hg] Mayela Magallanes LPN [employer] [facility], [facility] [employer], [employer]. Comment on above: Patient Position: Sitting; Cuff Location : Left Arm; Cuff Size: Large 04-08-2018 14:15-0400 Body height 161.29 cm Mayela Magallanes DELIVERY ASSOCIATE [facility], [facility] [employer], [employer]. 04-08-2018 14:15-0400 Body mass index (BMI) [Ratio] 36.27 kg/m2 [facility] [employer], [employer] 04-08-2018 14:15-0400 Body surface area Derived from formula 1.98 m2 Mayela Magallanes DELIVERY ASSOCIATE [facility], [facility] [employer], [employer] 04-08-2018 14:15-0400 Body weight 94.35 kg [facility]ela [facility]anes [facility] [employer], [employer] 04-08-2018 14:15-0400 Diastolic blood pressure 84 mm[Hg] Mayela Magallanes [facility] [employer] Front [address]. Comment on above: Patient Position: Sitting; Cuff Location : Left Arm; Cuff Size: Large 04-08-2018 14:15-0400 Heart rate 89 /min [facility]anes [facility] [employer], [employer] Comment on above: Pattern: Regular 04-08-2018 14:15-0400 Systolic blood pressure 129 mm[Hg] [facility] [employer], [employer] Comment on above: Patient Position: Sitting; Cuff Location : Left Arm; Cuff Size: Large 10-08-2017 11:50-0400 Body height 161.29 cm Pietro Littlejohn MD Work Phone: [employer] [address]. 10-08-2017 11:50-0400 Body mass index (BMI) [Ratio] 35.57 kg/m2 Pietro Littlejohn MD Work Phone: [employer].; [address]. 10-08-2017 11:50-0400 Body surface area Derived from formula 1.96 m2 Pietro Littlejohn MD Work Phone: [employer].; [address]. 10-08-2017 11:50-0400 Body weight 92.53 kg Pietro Littlejohn MD Work Phone: [employer].; [address]. 10-08-2017 11:50-0400 Diastolic blood pressure 80 mm[Hg] Pietro Littlejohn MD Work Phone: [employer].; [address]. Comment on above: Patient Position: Sitting; Cuff Location : Left Arm; Cuff Size: Large 10-08-2017 11:50-0400 Heart rate 83 /min Pietro Littlejohn MD Work Phone: [employer].; [address]. Comment on above: Pattern: Regular 10-08-2017 11:50-0400 Systolic blood pressure 132 mm[Hg] Pietro Littlejohn MD Work Phone: [employer].; [address]. Comment on above: Patient Position: Sitting; Cuff Location : Left Arm; Cuff Size: Large 04-09-2017 11:140400 Body height 161.29 cm Sunitha Zenaida Mutdaljitbaugh DELIVERY ASSOCIATE [employer], [employer].; [address]. 04-09-2017 11:14-0400 Body mass index (BMI) [Ratio] 34.87 kg/m2 Sunitha K Mutersbaugh DELIVERY ASSOCIATE [employer].; [address]. 04-09-2017 11:14-0400 Body surface area Derived from formula 1.95 m2 Sunitha K Mutersbaugh DELIVERY ASSOCIATE [employer].; Front [address]. 04-09-2017 11:14-0400 Body weight 90.72 kg Sunitha K Mutersbaugh DELIVERY ASSOCIATE [employer].; [address]. 04-09-2017 11:14-0400 Diastolic blood pressure 77 mm[Hg] Sunitha K Mutersbaugh DELIVERY ASSOCIATE [employer], [employer].; [address]. Comment on above: Patient Position: Sitting; Cuff Location : Left Arm; Cuff Size: Standard 04-09-2017 11:14-0400 Heart rate 80 /min Sunitha K Mutersbaugh DELIVERY ASSOCIATE [employer].; Front [address]. Comment on above: Pattern: Regular 04-09-2017 11:14-0400 Systolic blood pressure 111 mm[Hg] Sunitha K Mutersbaugh DELIVERY ASSOCIATE [employer].; Front [address]. Comment on above: Patient Position: Sitting; Cuff Location : Left Arm; Cuff Size: Standard 10-02-2016 11:00-0400 Body height 161.29 cm [facility]ela [facility]anes [facility], [employer].; Front [address]. 10-02-2016 11:00-0400 Body mass index (BMI) [Ratio] 35.4 kg/m2 Mayela Magallanes [facility], [facility].; [employer], [employer] 10-02-2016 11:00-0400 Body surface area Derived from formula 1.96 m2 Mayela Magallanes DELIVERY ASSOCIATE [facility], [facility].; [employer], [employer] 10-02-2016 11:00-0400 Body weight 92.08 kg Mayela Magallanes DELIVERY ASSOCIATE [facility], [facility].; [employer], [employer] 10-02-2016 11:00-0400 Diastolic blood pressure 86 mm[Hg] Mayela Magallanes [facility], [facility] [employer], [employer] Comment on above: Patient Position: Sitting; Cuff Location : Left Arm; Cuff Size: Large 10-02-2016 11:00-0400 Heart rate 76 /min Mayela Magallanes DELIVERY ASSOCIATE [facility], [facility] [employer], [employer] Comment on above: Pattern: Regular 10-02-2016 11:00-0400 Systolic blood pressure 133 mm[Hg] Mayela Magallanes DELIVERY ASSOCIATE [facility], [facility] [employer], [employer] Comment on above: Patient Position: Sitting; Cuff Location : Left Arm; Cuff Size: Large 04-05-2016 13:53-0400 Body weight 91.17 kg Olga Armstrong LPN [place] [facility], [facility] [employer], [employer] 04-05-2016 13:53-0400 Diastolic blood pressure 86 mm[Hg] Olga Armstrong LPN [place] [facility], [facility] [employer], [employer] Comment on above: Patient Position: Sitting; Cuff Location : Left Arm; Cuff Size: Standard 04-05-2016 13:53-0400 Heart rate 101 /min Olga Armstrong LPN [facility], [facility] [employer], [employer]. Comment on above: Pattern: Regular 04-05-2016 13:53-0400 Systolic blood pressure 138 mm[Hg] Olga Armstrong LPN [facility], [facility] [employer], [employer] Comment on above: Patient Position: Sitting; Cuff Location : Left Arm; Cuff Size: Standard 01-03-2016 08:11-0400 Body height 161.29 cm Mayela Magallanes LPN [facility], [facility].; [employer], [employer] 01-03-2016 08:11-0400 Body mass index (BMI) [Ratio] 35.22 kg/m2 Mayela Magallanes LPN [facility], [facility] [employer], [employer] 01-03-2016 08:11-0400 Body surface area Derived from formula 1.95 m2 Mayela Magallanes DELIVERY ASSOCIATE [place] [facility], [facility] [employer], [employer] 01-03-2016 08:11-0400 Body weight 91.63 kg Mayela Magallanes [facility], [facility] [employer], [employer] 01-03-2016 08:11-0400 Diastolic blood pressure 90 mm[Hg] Mayela Magallanes DELIVERY ASSOCIATE [facility], [facility].; [employer], [employer] Comment on above: Patient Position: Sitting; Cuff Location : Left Arm; Cuff Size: Large 01-03-2016 08:11-0400 Heart rate 83 /min Mayela Magallanes DELIVERY ASSOCIATE [facility], [facility].; [employer], [employer] Comment on above: Pattern: Regular 01-03-2016 08:11-0400 Systolic blood pressure 138 mm[Hg] Mayela Magallanes DELIVERY ASSOCIATE [facility], [facility] [employer], [employer] Comment on above: Patient Position: Sitting; Cuff Location : Left Arm; Cuff Size: Large 11-29-2015 07:32-0400 Body height 161.29 cm Mayela Magallanes DELIVERY ASSOCIATE [facility], [facility].; [employer] 11-29-2015 07:32-0400 Body mass index (BMI) [Ratio] 35.74 kg/m2 Mayela Magallanes [facility], [facility] [employer], [employer] 11-29-2015 07:32-0400 Body surface area Derived from formula 1.97 m2 Mayela Magallanes DELIVERY ASSOCIATE [place] [facility], [facility] [employer], [employer] 11-29-2015 07:32-0400 Body temperature 98.3 [degF] Mayela Magallanes [facility], [facility] [employer], [employer] Comment on above: Method: Tympanic 11-29-2015 07:32-0400 Body weight 92.99 kg Mayela Magallanes LPN [facility], [facility] [employer], [employer] 11-29-2015 07:32-0400 Diastolic blood pressure 99 mm[Hg] Mayela Magallanes DELIVERY ASSOCIATE [place] [facility], [facility] [employer], [employer] Comment on above: Patient Position: Sitting; Cuff Location : Left Arm; Cuff Size: Large 11-29-2015 07:32-0400 Heart rate 90 /min Mayela Magallanes DELIVERY ASSOCIATE [place] [facility], [facility] [employer], [employer] Comment on above: Pattern: Regular 11-29-2015 07:32-0400 Systolic blood pressure 140 mm[Hg] Mayela Magallanes DELIVERY ASSOCIATE [place] [facility], [facility] [employer], [employer] Comment on above: Patient Position: Sitting; Cuff Location : Left Arm; Cuff Size: Large 11-08-2015 13:26-0400 Body height 161.29 cm Sunitha K Mutersbaugh DELIVERY ASSOCIATE [place] [facility], [facility] [employer], [employer] 11-08-2015 13:26-0400 Body mass index (BMI) [Ratio] 35.74 kg/m2 Sunitha K Mutersbaugh DELIVERY ASSOCIATE [place] [facility], [facility] [employer], [employer] 11-08-2015 13:26-0400 Body surface area Derived from formula 1.97 m2 Sunitha K Mutersbaugh DELIVERY ASSOCIATE [place] [facility], [facility] [employer], [employer] 11-08-2015 13:26-0400 Body weight 92.99 kg Sunitha K Mutersbaugh DELIVERY ASSOCIATE [employer], [employer]. 11-08-2015 13:26-0400 Diastolic blood pressure 86 mm[Hg] Sunitha K Mutersbaugh DELIVERY ASSOCIATE [place] [employer], [employer] Comment on above: Patient Position: Sitting; Cuff Location : Left Arm; Cuff Size: Standard 11-08-2015 13:26-0400 Heart rate 80 /min Sunitha K Mutersbaugh DELIVERY ASSOCIATE [facility] [employer]. Comment on above: Pattern: Regular 11-08-2015 13:26-0400 Systolic blood pressure 136 mm[Hg] Sunitha Falcon [facility], [facility].; [employer], [employer]. Comment on above: Patient Position: Sitting; Cuff Location : Left Arm; Cuff Size: Standard 05-10-2015 13:35-0400 Body height 16.51 cm Mayela Magallanes [facility], [facility].; [facility], [employer]. 05-10-2015 13:35-0400 Body mass index (BMI) [Ratio] 3444.62 kg/m2 Mayela Magallanes [facility], [facility].; [employer], [employer]. 05-10-2015 13:35-0400 Body surface area Derived from formula 0.38 m2 Mayela Magallanes [facility], [facility].; [employer], [employer]. 05-10-2015 13:35-0400 Body weight 93.9 kg Mayela Magallanes [facility], [facility].; [employer], [employer]. 05-10-2015 13:35-0400 Diastolic blood pressure 77 mm[Hg] Mayela Magallanes [facility], [facility].; [employer], [employer]. Comment on above: Patient Position: Sitting; Cuff Location : Left Arm; Cuff Size: Large 05-10-2015 13:35-0400 Heart rate 77 /min Mayela Magallanes [facility], [facility].; [address]. Comment on above: Pattern: Regular 05-10-2015 13:35-0400 Systolic blood pressure 134 mm[Hg] Maeyla Magallanes [facility], [employer].; [address]. Comment on above: Patient Position: Sitting; Cuff Location : Left Arm; Cuff Size: Large 11-02-2014 13:18-0400 Body height 161.29 cm Pietro Littlejohn MD Work Phone: [place] [facility], [employer].; [address]. 11-02-2014 13:18-0400 Body mass index (BMI) [Ratio] 35.57 kg/m2 Pietro Littlejohn MD Work Phone: [employer]; [address]. 11-02-2014 13:18-0400 Body surface area Derived from formula 1.96 m2 Pietro Littlejohn MD Work Phone: [facility] [address]. 11-02-2014 13:18-0400 Body weight 92.53 kg Pietro Littlejohn MD Work Phone: [facility] [address]. 11-02-2014 13:18-0400 Diastolic blood pressure 78 mm[Hg] Pietro Littlejohn MD Work Phone: [facility] [address].; [address]. Comment on above: Patient Position: Sitting; Cuff Location : Left Arm; Cuff Size: Large 11-02-2014 13:18-0400 Heart rate 87 /min Pietro Littlejohn MD Work Phone: [employer]; [address]. Comment on above: Pattern: Regular 11-02-2014 13:18-0400 Systolic blood pressure 120 mm[Hg] Pietro Littlejohn MD Work Phone: [employer]; [address]. Comment on above: Patient Position: Sitting; Cuff Location : Left Arm; Cuff Size: Large 07-13-2014 08:34-0500 Body height 161.29 cm Pietro Littlejohn MD Work Phone: [employer]; [address]. 07-13-2014 08:34-0500 Body mass index (BMI) [Ratio] 35.74 kg/m2 Pietro Littlejohn MD Work Phone: [employer]; [address]. 07-13-2014 08:34-0500 Body surface area Derived from formula 1.97 m2 Pietro Littlejohn MD Work Phone: [employer]; [address]. 07-13-2014 08:34-0500 Body temperature 99 [degF] Pietro Littlejohn MD Work Phone: [employer]; [address]. 07-13-2014 08:34-0500 Body weight 92.99 kg Pietro Littlejohn MD Work Phone: [facility] [address]. 07-13-2014 08:34-0500 Diastolic blood pressure 80 mm[Hg] Pietro Littlejohn MD Work Phone: [place] [facility].; [address]. Comment on above: Patient Position: Sitting; Cuff Location : Left Arm; Cuff Size: Large 07-13-2014 08:34-0500 Heart rate 86 /min Pietro Littlejohn MD Work Phone: [place] [facility] [address]. Comment on above: Pattern: Regular 07-13-2014 08:34-0500 Respiratory rate 16 /min Pietro Littlejohn MD Work Phone: [place] [facility] [address]. Comment on above: Pattern: Unlabored 07-13-2014 08:34-0500 Systolic blood pressure 128 mm[Hg] Pietro Littlejohn MD Work Phone: [place] [facility] [employer] [address]. Comment on above: Patient Position: Sitting; Cuff Location : Left Arm; Cuff Size: Large 05-04-2014 13:27-0400 Body height 161.29 cm Mayela Magallanes [facility], [employer].; [address]. 05-04-2014 13:27-0400 Body mass index (BMI) [Ratio] 35.92 kg/m2 Jeanne Fort Hunt [facility].; [address]. 05-04-2014 13:27-0400 Body surface area Derived from formula 1.97 m2 Jeanne Sona [facility] [employer].; [address]. 05-04-2014 13:27-0400 Body weight 93.44 kg Jeanne Stuckey DELIVERY ASSOCIATE [place] [facility], [employer].; [address]. 05-04-2014 13:27-0400 Diastolic blood pressure 82 mm[Hg] Mayela Magallanes LPN [facility], [facility], [employer]. Comment on above: Patient Position: Sitting; Cuff Location : Left Arm; Cuff Size: Large 05-04-2014 13:27-0400 Heart rate 80 /min Mayela Magallanes LPN [facility], [facility], [employer]. Comment on above: Pattern: Regular 05-04-2014 13:27-0400 Systolic blood pressure 123 mm[Hg] Mayela Magallanes LPN [facility], [facility] [employer], [employer]. Comment on above: Patient Position: Sitting; Cuff Location : Left Arm; Cuff Size: Large 11-03-2013 14:040400 Body height 161.29 cm Mayela Magallanes LPN [facility], [facility].; [facility] [facility] 11-03-2013 14:04-0400 Body mass index (BMI) [Ratio] 35.05 kg/m2 Mayela Magallanes LPN [facility], [facility].; [facility] [facility] 11-03-2013 14:040400 Body surface area Derived from formula 1.95 m2 Mayela Magallanes LPN [facility], [facility].; [facility] [facility], [facility] 11-03-2013 14:040400 Body weight 91.17 kg Mayela Magallanes LPN [facility], [facility].; [employer] [facility], [facility] 11-03-2013 14:040400 Diastolic blood pressure 80 mm[Hg] Mayela Magallanes LPN [facility], [facility] [employer] [facility], [employer]. Comment on above: Patient Position: Sitting; Cuff Location : Left Arm; Cuff Size: Large 11-03-2013 14:04-0400 Heart rate 83 /min Mayela Magallanes LPN [facility], [facility] [employer], [employer]. Comment on above: Pattern: Regular 11-03-2013 14:04-0400 Systolic blood pressure 119 mm[Hg] Mayela Magallanes LPN [facility], [facility] [employer], [employer]. Comment on above: Patient Position: Sitting; Cuff Location : Left Arm; Cuff Size: Large 05-05-2013 13:31-0400 Body weight 90.27 kg Mayela Magallanes DELIVERY ASSOCIATE [place] [facility], [facility] [employer], [employer] 05-05-2013 13:31-0400 Diastolic blood pressure 77 mm[Hg] Mayela Magallanes [facility], [facility] [employer], [employer] Comment on above: Patient Position: Sitting; Cuff Location : Left Arm; Cuff Size: Large 05-05-2013 13:31-0400 Heart rate 82 /min Mayela Magallanes [facility], [facility] [employer], [employer] Comment on above: Pattern: Regular 05-05-2013 13:31-0400 Systolic blood pressure 112 mm[Hg] Mayela Magallanes [facility] [employer] [facility], [facility] [employer], [employer] Comment on above: Patient Position: Sitting; Cuff Location : Left Arm; Cuff Size: Large 11-02-2012 13:30-0400 Body weight 89.81 kg Olga Armstrong LPN [place] [facility], [facility] [employer], [employer] 11-02-2012 13:30-0400 Diastolic blood pressure 77 mm[Hg] Olga Armstrong LPN [facility], [facility] [employer], [employer]. Comment on above: Patient Position: Sitting; Cuff Location : Left Arm; Cuff Size: Standard 11-02-2012 13:30-0400 Heart rate 79 /min Olga Amrstrong LPN [place] [facility], [facility] [employer], [employer]. Comment on above: Pattern: Regular 11-02-2012 13:30-0400 Systolic blood pressure 119 mm[Hg] Olga Armstrong LPN [place] [facility], [facility] [employer], [employer]. Comment on above: Patient Position: Sitting; Cuff Location : Left Arm; Cuff Size: Standard 10-21-2011 09:23-0400 Body weight 88 kg Olga Armstrong LPN [facility] [facility], [facility] [employer], [employer] 10-21-2011 09:23-0400 Diastolic blood pressure 83 mm[Hg] Olga Armstrong LPN [facility] [facility], [facility] [employer], [employer]. Comment on above: Patient Position: Sitting; Cuff Location : Left Arm; Cuff Size: Standard 10-21-2011 09:23-0400 Heart rate 78 /min Olga E Nathaniel DELIVERY ASSOCIATE [facility], [facility].; [employer], [employer]. Comment on above: Pattern: Regular 10-21-2011 09:23-0400 Systolic blood pressure 136 mm[Hg] Olga Armstrong [facility], [facility].; [facility] [employer] [facility], [employer]. Comment on above: Patient Position: Sitting; Cuff Location : Left Arm; Cuff Size: Standard 05-08-2011 10:59-0400 Body height 161.29 cm Mayela Magallanes [facility], Inc.; [employer] [facility], [employer]. 05-08-2011 10:59-0400 Body mass index (BMI) [Ratio] 34.87 kg/m2 Mayela Magallanes [facility], Inc.; [place] [employer], [employer]. 05-08-2011 10:59-0400 Body surface area Derived from formula 1.95 m2 Jeanne Stuckey [facility], [facility].; [place] [employer], [employer]. 05-08-2011 10:59-0400 Body weight 90.72 kg Mayela Magallanes [facility], [facility].; [employer] [facility], [employer]. 05-08-2011 10:59-0400 Diastolic blood pressure 86 mm[Hg] Mayela Magallanes [facility], [facility].; [employer] [facility], [employer]. Comment on above: Patient Position: Sitting; Cuff Location : Left Arm; Cuff Size: Large 05-08-2011 10:59-0400 Heart rate 88 /min Mayela Magallanes [facility], [facility].; [employer] [facility], [employer]. Comment on above: Pattern: Regular 05-08-2011 10:59-0400 Systolic blood pressure 126 mm[Hg] Mayela Magallanes [facility], Inc.; [employer], [employer]. Comment on above: Patient Position: Sitting; Cuff Location : Left Arm; Cuff Size: Large 11-07-2010 11:11-0400 Body height 161.29 cm Mayela Magallanes [facility], Inc.; [employer], [employer]. 11-07-2010 11:11-0400 Body mass index (BMI) [Ratio] 35.05 kg/m2 Mayela Magallanes LPN [facility], Inc.; [employer] [facility], Inc. 11-07-2010 11:11-0400 Body surface area Derived from formula 1.95 m2 Mayela Magallanes DELIVERY ASSOCIATE [facility], Inc.; [employer] [facility], Inc. 11-07-2010 11:11-0400 Body weight 91.17 kg Mayela Magallanes LPN [facility], Inc.; [employer] [facility], Inc. 11-07-2010 11:11-0400 Diastolic blood pressure 83 mm[Hg] Mayela Magallanes LPN [facility], Inc.; [employer], [employer] Comment on above: Patient Position: Sitting; Cuff Location : Left Arm; Cuff Size: Large 11-07-2010 11:11-0400 Heart rate 87 /min Mayela Magallanes DELIVERY ASSOCIATE [facility], Inc.; [employer], [employer] Comment on above: Pattern: Regular 11-07-2010 11:11-0400 Systolic blood pressure 127 mm[Hg] Mayela Magallanes LPN [facility], Inc.; [employer], [employer] Comment on above: Patient Position: Sitting; Cuff Location : Left Arm; Cuff Size: Large 07-04-2010 09:27-0500 Body height 161.29 cm Mayela Magallanes LPN [facility], Inc.; [employer], [employer] 07-04-2010 09:27-0500 Body mass index (BMI) [Ratio] 35.92 kg/m2 Mayela Magallanes DELIVERY ASSOCIATE [facility], Inc.; [employer] [facility], Inc. 07-04-2010 09:27-0500 Body surface area Derived from formula 1.97 m2 Mayela Magallanes LPN [facility], Inc.; [employer] [facility], [employer]. 07-04-2010 09:27-0500 Body weight 93.44 kg Mayela Magallanes DELIVERY ASSOCIATE [facility], Inc.; [employer], [employer]. 07-04-2010 09:27-0500 Diastolic blood pressure 86 mm[Hg] Mayela Magallanes DELIVERY ASSOCIATE [facility], Inc.; [employer], [employer]. Comment on above: Patient Position: Sitting; Cuff Location : Left Arm; Cuff Size: Large 07-04-2010 09:27-0500 Heart rate 81 /min Mayela Magallanes LPN [facility], Inc.; [employer], [employer]. Comment on above: Pattern: Regular 07-04-2010 09:27-0500 Systolic blood pressure 149 mm[Hg] Mayela Magallanes LPN [facility], Inc.; [employer], [employer] Comment on above: Patient Position: Sitting; Cuff Location : Left Arm; Cuff Size: Large 05-09-2010 11:13-0400 Body height 161.29 cm Mayela Magallanes LPN [facility], Inc.; [employer], [employer] 05-09-2010 11:13-0400 Body mass index (BMI) [Ratio] 35.92 kg/m2 Mayela Magallanes [facility], [facility].; [employer], [employer] 05-09-2010 11:13-0400 Body surface area Derived from formula 1.97 m2 Mayela Magallanes [facility], [facility].; [employer], [employer] 05-09-2010 11:13-0400 Body weight 93.44 kg Mayela Magallanes [facility].; [employer], [employer] 05-09-2010 11:13-0400 Diastolic blood pressure 78 mm[Hg] Mayela Magallanes LPN [facility], Inc.; [employer], [employer] Comment on above: Patient Position: Sitting; Cuff Location : Left Arm; Cuff Size: Large 05-09-2010 11:13-0400 Heart rate 82 /min Mayela Magallanes LPN [facility], Inc.; [employer], [employer]. Comment on above: Pattern: Regular 05-09-2010 11:13-0400 Systolic blood pressure 130 mm[Hg] Mayela Magallanes [facility] [employer] [facility], Inc.; [employer], [employer]. Comment on above: Patient Position: Sitting; Cuff Location : Left Arm; Cuff Size: Large Encounters Encounter Date Encounter Type Care Provider Facility Start: 05-04-2025 cristine Peter lity:[facility] Start: 04-21-2025 End: 04-21-[address] Mohan Crow MD -[facility] Work Phone: Start: 04-21-2025 End: 04-21-[address] Pietro Littlejohn MD Work Phone: -[facility] Start: 04-12-2025 End: 04-12-2025 ambulatory [facility] Start: 03-21-2025 End: 03-21-2025 ambulatory [facility] Start: 03-09-2025 End: 03-09-2025 ambulatory [facility] Start: 11-16-2024 End: 11-16-2024 Office outpatient visit 15 minutes Pietro Littlejohn MD Work Phone: [employer] Start: 09-07-2024 End: 09-07-2024 Orders Pietro Littlejohn MD Work Phone: [facility]. Start: 09-01-2024 End: 09-06-2024 Orders Pietro Littlejohn MD Work Phone: [facility]. Start: 08-30-2024 End: 08-30-2024 Orders Pietro Littlejohn MD Work Phone: [facility]. Start: 05-25-2024 End: 05-25-2024 Patient encounter procedure Pietro Littlejohn MD Work Phone: [employer]; [facility]. Start: 05-25-2024 End: 05-25-2024 Periodic preventive med est patient 65yrs& older Pietro Littlejohn MD Work Phone: [facility]. Start: 05-19-2024 End: 05-19-2024 Orders Pietro Littlejohn MD Work Phone: [facility]. Start: 04-21-2024 End: 04-22-2024 Orders Pietro Littlejohn MD Work Phone: [facility]. Start: 11-24-2023 End: 11-24-2023 Office outpatient visit 15 minutes Pietro Littlejohn MD Work Phone: [facility]. Start: 06-09-2023 End: 06-09-2023 Orders Pietro Littlejohn MD Work Phone: [facility]. Start: 06-09-2023 End: 06-09-2023 Physical examination Abdelrahman Kong LPN [facility].; [facility]. Start: 05-26-2023 End: 05-26-2023 Periodic preventive med est patient 65yrs& older Pietro Littlejohn MD Work Phone: [facility]. Start: 05-26-2023 End: 05-26-2023 Physical examination Pietro Littlejohn MD Work Phone: [facility].; [facility]. Start: 05-07-2023 End: 05-07-2023 Orders Pietro Littlejohn MD Work Phone: [facility]. Start: 11-13-2022 End: 11-13-2022 Office outpatient visit 15 minutes Pietro Littlejohn MD Work Phone: [facility]. Start: 05-15-2022 End: 05-15-2022 Patient encounter status Pietro Littlejohn MD Work Phone: [facility].; [facility]. Start: 05-15-2022 End: 05-15-2022 Periodic preventive med est patient 65yrs& older Pietro Littlejohn MD Work Phone: [facility]. Start: 05-08-2022 End: 05-08-2022 Orders Pietro Littlejohn MD Work Phone: [facility]. Start: 04-08-2022 End: 04-08-2022 Orders Pietro Littlejohn MD Work Phone: [facility]. Start: 11-21-2021 End: 11-21-2021 Office outpatient visit 15 minutes Pietro Littlejohn MD Work Phone: [facility]. Start: 04-25-2021 End: 04-25-2021 Patient encounter status Phoebe Ivey LPN [facility].; [facility]. Start: 04-25-2021 End: 04-25-2021 Periodic preventive med est patient 65yrs& older Pietro Littlejohn MD Work Phone: [facility]. Start: 04-18-2021 End: 04-18-2021 Orders Pietro Littlejohn MD Work Phone: [facility]. Start: 03-23-2021 End: 03-26-2021 Orders Pietro Littlejohn MD Work Phone: [facility]. Start: 11-01-2020 End: 11-01-2020 Office outpatient visit 15 minutes Pietro Littlejohn MD Work Phone: [facility]. Start: 06-07-2020 End: 06-07-2020 Office outpatient visit 15 minutes Pietro Littlejohn MD Work Phone: [facility]. Start: 06-07-2020 End: 06-07-2020 Preoperative state Pietro Littlejohn MD Work Phone: [facility].; [facility]. Start: 04-19-2020 End: 04-19-2020 Patient encounter status Pietro Littlejohn MD Work Phone: [facility].; [email or web address] Start: 04-19-2020 End: 04-19-2020 Periodic preventive med est patient 65yrs& older Pietro Littlejohn MD Work Phone: [facility]. Start: 03-22-2020 End: 03-22-2020 Orders Pietro Littlejohn MD Work Phone: [facility]. Start: 10-26-2019 End: 10-26-2019 Orders Pietro Littlejohn MD Work Phone: [facility]. Start: 09-29-2019 End: 09-29-2019 Office outpatient visit 15 minutes Pietro Littlejohn MD Work Phone: [facility]. Start: 09-29-2019 End: 09-29-2019 Preoperative state Pietro Littlejohn MD Work Phone: Front [facility].; [facility]. Start: 06-30-2019 End: 06-30-2019 Office outpatient visit 15 minutes Pietro Littlejohn MD Work Phone: [facility]. Start: 02-02-2019 End: 02-02-2019 Historical Summary Pietro Littlejohn MD Work Phone: [employer] Start: 12-28-2018 End: 12-28-2018 Patient encounter status Pietro Littlejohn MD Work Phone: [facility].; [email or web address] Start: 12-28-2018 End: 12-28-2018 Periodic preventive med est patient 40-64yrs Pietro Littlejohn MD Work Phone: [facility]. Start: 10-07-2018 End: 10-07-2018 Office outpatient visit 15 minutes Pietro Littlejohn MD Work Phone: [facility]. Start: 09-30-2018 End: 09-30-2018 Orders Pietro Littlejohn MD Work Phone: [facility]. Start: 04-08-2018 End: 04-08-2018 Office outpatient visit 15 minutes Pietro Littlejohn MD Work Phone: [facility]. Start: 11-24-2017 End: 11-24-2017 Medication Pietro Littlejohn MD Work Phone: [facility]. Start: 11-04-2017 End: 11-04-2017 Telephone follow-up Pietro Littlejohn MD Work Phone: [employer] Start: 10-08-2017 End: 10-08-2017 Office outpatient visit 15 minutes Pietro Littlejohn MD Work Phone: [facility]. Start: 10-02-2017 End: 10-02-2017 Orders Pietro Littlejohn MD Work Phone: [facility]. Start: 10-01-2017 End: 10-01-2017 Orders Pietro Littlejohn MD Work Phone: [facility]. Start: 04-09-2017 End: 04-09-2017 Office outpatient visit 15 minutes Pietro Littlejohn MD Work Phone: [facility]. Start: 10-02-2016 End: 10-02-2016 Office outpatient visit 15 minutes Pietro Littlejohn MD Work Phone: [facility]. Start: 10-02-2016 End: 10-02-2016 Orders Pietro Littlejohn MD Work Phone: [email or web address] Start: 04-05-2016 End: 04-05-2016 Office outpatient visit 15 minutes Pietro Littlejohn MD Work Phone: [email or web address] Start: 01-03-2016 End: 01-03-2016 Office outpatient visit 15 minutes Pietro Littlejohn MD Work Phone: [facility]. Start: 12-06-2015 End: 12-06-2015 Orders Pietro Littlejohn MD Work Phone: [facility]. Start: 11-29-2015 End: 11-29-2015 Office outpatient visit 15 minutes Pietro Littlejohn MD Work Phone: [email or web address] Start: 11-08-2015 End: 11-08-2015 Office outpatient visit 15 minutes Pietro Littlejohn MD Work Phone: [facility]. Start: 05-10-2015 End: 05-10-2015 Office outpatient visit 15 minutes Pietro Littlejohn MD Work Phone: [email or web address] Start: 11-02-2014 End: 11-02-2014 Office outpatient visit 15 minutes Pietro Littlejohn MD Work Phone: [facility]. Start: 07-13-2014 End: 07-13-2014 Office outpatient visit 15 minutes Pietro Littlejohn MD Work Phone: [facility]. Start: 07-13-2014 End: 07-13-2014 Preoperative state Pietro Littlejohn MD Work Phone: [email or web address] Start: 06-13-2014 End: 06-13-2014 Historical Summary Pietro Littlejohn MD Work Phone: [employer] Start: 05-04-2014 End: 05-04-2014 Orders Pietro Littlejohn MD Work Phone: [facility]. Start: 05-04-2014 End: 05-04-2014 Office outpatient visit 15 minutes Pietro Littlejohn MD Work Phone: [employer] Start: 11-03-2013 End: 11-03-2013 Patient encounter procedure Pietro Littlejohn MD Work Phone: [facility]. Start: 05-05-2013 End: 05-05-2013 Patient encounter procedure Pietro Littlejohn MD Work Phone: [facility]. Start: 05-04-2013 End: 05-04-2013 Historical Summary Pietro Littlejohn MD Work Phone: [employer] Start: 11-02-2012 End: 11-02-2012 Patient encounter procedure Pietro Littlejohn MD Work Phone: [facility]. Start: 10-22-2012 End: 10-22-2012 Orders Pietro Littlejohn MD Work Phone: [facility]. Start: 04-20-2012 End: 04-20-2012 Orders Pietro Littlejohn MD Work Phone: [facility]. Start: 04-13-2012 End: 04-13-2012 Orders Pietro Littlejohn MD Work Phone: [facility]. Start: 10-21-2011 End: 10-21-2011 Orders Pietro Littlejohn MD Work Phone: [facility]. Start: 10-21-2011 End: 10-21-2011 Patient encounter procedure Pietro Littlejohn MD Work Phone: [facility]. Start: 10-03-2011 End: 10-03-2011 Medication Pietro Littlejohn MD Work Phone: [facility]. Start: 05-08-2011 End: 05-08-2011 Patient encounter procedure Pietro Littlejohn MD Work Phone: [facility]. Start: 05-03-2011 End: 05-03-2011 Medication Pietro Littlejohn MD Work Phone: [facility]. Start: 04-06-2011 End: 04-06-2011 Medication Pietro Littlejohn MD Work Phone: [facility]. Start: 03-04-2011 End: 03-04-2011 Orders Pietro Littlejohn MD Work Phone: [facility]. Start: 11-08-2010 End: 11-08-2010 Medication Pietro Littlejohn MD Work Phone: [facility]. Start: 11-07-2010 End: 11-07-2010 Patient encounter procedure Pietro Littlejohn MD Work Phone: [facility]. Start: 09-17-2010 End: 09-17-2010 Medication Pietro Littlejohn MD Work Phone: [facility]. Start: 07-04-2010 End: 07-04-2010 Patient encounter procedure Pietro Littlejohn MD Work Phone: [facility]. Start: 05-09-2010 End: 05-09-2010 Patient encounter procedure Pietro Littlejohn MD Work Phone: [facility]. Start: 04-13-2010 End: 04-13-2010 Medication Pietro Littlejohn MD Work Phone: [facility]. Start: 04-12-2010 End: 04-12-2010 Historical Summary Pietro Littlejohn MD Work Phone: [facility]. Admission [facility] Phoebe Ivey [facility] [employer] [facility], [facility].; [employer]. Patient encounter procedure Abdelrahman Kong DELIVERY ASSOCIATE [employer]. Patient encounter status Mayela German [facility] [employer] [facility], Inc.; [employer]. Patient encounter status Abdelrahman Kong LPN [employer] Patient encounter status Abdelrahman Kong LPN [employer] [facility], Inc.; [employer] Procedures Date Procedure Procedure Detail Performing Clinician Start: 05-25-2024 End: 05-24-2024 Adv care pln/ no alt dcsn mkr docd or refusal Pietro Littlejohn MD Work Phone: Start: 05-25-2024 End: 05-24-2024 Depression screening Pietro Littlejohn MD Work Phone: Start: 05-25-2024 End: 05-24-2024 Falls risk assessment documented Pietro Littlejohn MD Work Phone: Start: 05-25-2024 End: 05-25-2024 Flu immunize order/admin Pietro Minor Work Phone: Start: 05-25-2024 End: 05-24-2024 PPPS, subseq visit Pietro Littlejohn MD Work Phone: Start: 05-25-2024 End: 05-24-2024 Pt falls assess docd w/o fall/injury past year Pietro Littlejohn MD Work Phone: Start: 05-25-2024 End: 05-24-2024 Scr dep neg, no plan reqd Pietro Littlejohn MD Work Phone: Start: 05-19-2024 End: 05-19-2024 Lab findings surveillance Abdelrahman AHUJA Comment on above: CMP 97 Start: 05-19-2024 End: 05-19-2024 Lipid panel results documented & reviewed Abdelrahman Kong LPN Comment on above: TC 242, HDL 73, TRI 133, LDL 143 Start: 05-19-2024 End: 05-19-2024 Thyrotropin [Units/volume] in Serum or Plasma Abdelrahman Kong LPN Comment on above: 0.15 Start: 05-26-2023 End: 05-26-2023 Adv care pln/ no alt dcsn mkr docd or refusal Pietro Littlejohn MD Work Phone: Start: 05-26-2023 End: 05-26-2023 Depression screening Pietro Littlejohn MD Work Phone: Start: 05-26-2023 End: 05-26-2023 Falls risk assessment documented Pietro Littlejohn MD Work Phone: Start: 05-26-2023 End: 05-26-2023 Flu immunize order/admin Pietro Minor Work Phone: Start: 05-26-2023 End: 05-26-2023 Initial preventive exam Pietro Littlejohn MD Work Phone: Start: 05-26-2023 End: 05-26-2023 Pt falls assess docd 2/> falls/fall w/injury/yr Pietro Littlejohn MD Work Phone: Start: 05-26-2023 End: 05-26-2023 Scr dep neg, no plan reqd Pietro Littlejohn MD Work Phone: Start: 05-26-2023 End: 05-26-2023 Screening test visual acuity quantitative bilat Pietro Littlejohn MD Work Phone: Start: 05-13-2023 End: 05-13-2023 Lipid panel results documented & reviewed Jeanne Fort Hunt [facility] Start: 05-13-2023 End: 05-13-2023 Thyrotropin [Units/volume] in Serum or Plasma [facility] Comment on above: 0.31 Start: 05-22-2022 End: 05-22-2022 Cologuard [facility] Comment on above: Negative Start: 05-15-2022 End: 05-15-2022 Depression screening Pietro Littlejohn MD Work Phone: Start: 05-15-2022 End: 05-29-2022 Oncology colorectal screening jigar 10 dna markrs Pietro Littlejohn MD Work Phone: Start: 05-15-2022 End: 05-15-2022 Scr dep neg, no plan reqd Pietro Littlejohn MD Work Phone: Start: 04-25-2021 End: 04-25-2021 Depression screening Pietro Littlejohn MD Work Phone: Start: 04-25-2021 End: 04-25-2021 Scr dep neg, no plan reqd Pietro Littlejohn MD Work Phone: Start: 04-19-2020 End: 04-19-2020 Depression screening Pietro Littlejohn MD Work Phone: Start: 04-19-2020 End: 04-19-2020 Scr dep neg, no plan reqd Pietro Littlejohn MD Work Phone: Start: 12-28-2018 End: 02-02-2019 Oncology colorectal screening jigar 10 dna markrs Pietro Littlejohn MD Work Phone: Start: 10-08-2017 End: 10-08-2017 Body mass index documented Pietro Littlejohn MD Work Phone: Start: 04-09-2017 End: 04-09-2017 Flu imm no admin doc brianna Pietro Minor Work Phone: Start: 12-06-2015 End: 12-12-2015 Hepatobiliary syst imaging including gallbladder Pietro Littlejohn MD Work Phone: Start: 11-29-2015 End: 12-06-2015 Us abdominal real time w/image limited Pietro Littlejohn MD Work Phone: Start: 06-03-2014 End: 06-03-2014 Ophthalmic examination and evaluation Mayela Magallanes DELIVERY ASSOCIATE Comment on above: Dr. Dylon Dale, [place] [id number] Start: 04-13-2012 End: 04-13-2012 Screening mammography Mayela Magallanes DELIVERY ASSOCIATE Start: 05-08-2011 End: 04-15-2012 Mammogram, screening Pietro Littlejohn MD Work Phone: Cataract extraction and insertion of intraocular lens Mayela Magallanes DELIVERY ASSOCIATE Comment on above: Bilateral. Cataract extraction and insertion of intraocular lens Abdelrahman Kong DELIVERY ASSOCIATE Comment on above: Bilateral. Tonsillectomy Mayela Chavez lopez DELIVERY ASSOCIATE Tonsillectomy Abdelrahman Kong L PN Total hysterectomy Mayela Magallanes DELIVERY ASSOCIATE Total hysterectomy Abdelrahman Ma son DELIVERY ASSOCIATE Plan of Treatment Date Care Activity Detail Author Start: 06-06-2025 Patient encounter procedure Medical; PHYSICAL - [facility] Start: 06-Jun-2025 10:50-05:00 MD Pietro Littlejohn Appointment Request [facility] Start: 05-30-2025 Nursing evaluation o f patient and report Medical; Nurse visit - [facility] Start: 30-May-2025 08:00-05:00 NURSE, FLOAT Appointment Request [facility]. Start: 12-07-2024 Assay of thyroid stimulating hormone tsh TSH (THYROID STIMULATING HORMONE) ([id number]) Start: 07-Dec-2024 Request Front [facility].; [employer] Start: 11-16-2024 Assay of thyroid stimulating hormone tsh TSH (THYROID STIMULATING HORMONE) ([id number]) Start: 16-Nov-2024 09:12-04:00 Request Front Row.; [employer], [employer] Start: 11-16-2024 Patient encounter procedure [facility]. Start: 09-01-2024 Assay of thyroid stimulating hormone tsh TSH (THYROID STIMULATING HORMONE) ([id number]) Start: 01-Sep-2024 Request Front Row.; [employer] Start: 09-01-2024 Nursing evaluation o f patient and report [facility]. Start: 05-25-2024 Screening mammograph y bi 2-view breast inc cad Mammogram Bilateral Screening Digital w/CAD ([id number]) Start: 25-May-2024 Intent [facility].; [employer] Start: 05-25-2024 Patient encounter procedure Medical; PHYSICAL - awv [facility]. Start: 25-May-2024 08:40-05:00 MD Pietro Littlejohn F Appointment Request [facility]. Start: 05-19-2024 Lipid panel LIPID PANEL ([id number]) Start: 19-May-2024 Request Front Row.; [employer] Start: 05-19-2024 Assay of thyroid stimulating hormone tsh [employer].; [employer] Start: 05-19-2024 Comprehensive metabo lic panel [facility].; [employer] Start: 05-19-2024 Nursing evaluation o f patient and report [facility] Start: 19-May-2024 08:00-05:00 NURSE, FLOAT Appointment Request [facility]. Start: 05-26-2023 Screening mammograph y bi 2-view breast inc cad Mammogram Bilateral Screening Digital w/CAD ([id number]) Start: 26-May-2023 Intent Front [facility].; [facility]. Start: 11-21-2021 Screening mammograph y bi 2-view breast inc cad Mammogram Bilateral Screening Digital w/CAD ([id number]) Start: 21-Nov-2021 Intent Front [facility].; [facility]. Start: 04-25-2021 Screening mammograph y bi 2-view breast inc cad Mammogram Bilateral Screening Digital w/CAD ([id number]) Start: 25-Apr-2021 Intent Front [facility].; [employer], [employer]. Start: 04-19-2020 Screening mammograph y bi 2-view breast inc cad Mammogram Bilateral Screening ([id number]) Start: 19-Apr-2020 Intent Front [facility].; [facility]. Immunizations Immunization Date Immunization Notes Care Provider Fa [facility] 05-25-2024 influenza virus vaccine, unspecified formulation Pietro Littlejohn MD Work Phone: [employer]; [facility]. 05-25-2024 influenza, injectabl e, quadrivalent, preservative free Pietro Littlejohn MD Work Phone: [employer]; [facility]. Comment on above: Site: [facility] iven: * Influenza (Flu) Vaccine (Inactivated or Recombinant) (02/16/21) 06-09-2023 pneumococcal Conjuga te, unspecified formulation Pietro Littlejohn MD Work Phone: [employer]; [facility]. 06-09-2023 influenza, injectabl e, quadrivalent, preservative free Pietro Littlejohn MD Work Phone: [employer]; [facility]. Comment on above: Site: [facility] iven: * Influenza (Flu) Vaccine (Inactivated or Recombinant) (02/16/21) 06-09-2023 Pneumococcal conjuga te, 20 valent (PCV20) Pietro Littlejohn MD Work Phone: [employer]; [facility] Comment on above: Site: [facility]: * Pneumococcal Conjugate Vaccine (11/22/22) 05-26-2023 influenza virus vaccine, unspecified formulation Pietro Littlejohn MD Work Phone: [employer]; [facility] 05-10-2015 IMMUNIZATION ADMIN ([id number]) Pietro Littlejohn MD Work Phone: [employer]; [employer] 05-10-2015 influenza, seasonal, injectable Pietro Littlejohn MD Work Phone: [employer]; [employer] Comment on above: Site: Deltoid (Right )VIS Given: * Inactivated Influenza (02/17/2015) 10-11-2011 tetanus toxoid, redu fatemeh diphtheria toxoid, and acellular pertussis vaccine, adsorbed Pietro Littlejohn MD Work Phone: [employer]; [employer] Payers Date Payer Category Payer Medicare [id number] 2025 Self-pay 2025 Medicare [id number] 2025 Unknown [id number] 1955 Unknown [id number] 1955 Unknown [id number]. [id number] 1955 Unknown [id number] Unknown Unknown [id number] Unknown [id number] .16.8 [id number] Unknown [id number] .16.8 [id number] Social History Date Type Detail Facility Tobacco Use: Tobacco Use: ; N ever smoker. [employer]; [facility] Start: 1955 Female [facility] Start: 04-21-2025 Never smoked tobacco [facility] Sex Female [facility] Progress note 04-21-2025 Note Date & Type Note Facility 04-21-2025 Progress note [facility] Evaluation note Note Date & Type Note Facility Evaluation note Diagnosis Onset Date Resolution Breast cancer, left breast acute April 21 8:30am [facility] Work Phone: Progress note Note Date & Type Note Facility Progress note Note Date/Time April 21, 2025 9:03am [facility] [address] [place] [address] OFFICE VISIT Date of Service: 04/21/25 MR#: [id number] Acct: [id number] Name: JESSICA ARMENDARIZ Rep #: [id number] : 1955 Provider: Dr. Mark Crow MD Age/Sex: 69/F Location: [facility] Status: Signed Intake Vital Signs 04/21/25 08:51 Height 5 ft 4 in Weight: 241 lb BMI 41.3 BP 134/90 H Blood Pressure Location Rt brachial Position Sitting Respiration 17 Pulse 87 Pulse Source Monitor Pulse Oximetry (%) 98 Oxygen Delivery Method room air Intake Visit Reasons: DISCUSS BREAST SURGERY Chief Complaint: discuss breast surgery Is patient in pain?: No Allergies No Known Allergies Allergy (Verified 04/21/25 08:53) Medications ?Medication ?Instructions ?Recorded ?Confirmed ?Type eye vitamins/variety PO 04/21/25 History levothyroxine 100 mcg capsule 100 mcg PO QDAY 04/21/25 04/21/25 History lisinopril 10 mg tablet 10 mg PO QDAY 04/21/2504/21 History lisinopril 20 mg tablet 20 mg PO QDAY 04/21/2504/21 History metaluka vitamins PO 04/21/25 04/21/25 History vitamin B comp and C no.3 15 mg-10 1 cap PO QDAY 04/2104/21/25 History mg-50 mg-5 mg-300 mg capsule (B Complex Plus Vitamin C) Have you fallen in the past year?: No PFSH Medical History (Updated 04/21/25 @ 08:50 by Mayela Frias) Thyroid disease Acid reflux HTN (hypertension) Surgical History (Updated 04/21/25 @ 08:50 by Mayela Frias) H/O: hysterectomy Family History (Updated 04/21/25 @ 08:51 by Mayela Frias) Mother Breast cancer Hypertension Sister Diabetes Thyroid disorder Hypertension Social History (Updated 04/21/25 @ 08:51 by Mayela Frias) Smoking Status: Never smoker alcohol intake: never HPI HPI HPI: Patient is a 69-year-old female with left breast cancer. Patient was biopsied at outside hospital and found to have invasive ductal carcinoma of the left breast at the 10 o'clock position. Patient notes that she does have a family history of breast cancer in her mother who at a young age. She has had a breast biopsy in the past as well. ROS General General: Yes breast cancer; No weight change, appetite, fatigue, colon cancer or weakness HEENT HEENT: Yes eye surgery; No difficulty swallowing, eye injury, swollen glands or hoarseness Endo Endocrine: Yes thyroid disease; No diabetes mellitus, thyroid cancer, Hair loss, heat intolerance or cold intolerance Skin Skin: No rash or changing moles Breast Breast: Yes left breast lump and abnormal US; No right breast lump, nipple discharge, breast pain, abnormal mammogram or breast enlargement Additional Details: Left breast cancer invasive ductal Musc Musculoskeletal: No back problems, arthritis, rheumatoid arthritis, gout or joint pain Cardio Cardiovascular: Yes high blood pressure; No murmur, pacemaker, heart disease, atrial fibrillation, heart attack, heart stent, palpitations, shortness of breath with exertion or chest pain Psych Psychiatric: No depression, anxiety or hearing voices Resp Respiratory: No shortness of breath, No sleep apnea, No cough, No COPD, No asthma, No emphysema and No wheezing Gastro Gastrointestinal: No abdominal pain, No nausea or vomiting, No diarrhea, No constipation, No blood in stool, Yes acid reflux, No hemorrhoids, No ulcers, No gallbladder problem and No black,tarry stools Bao Hematologic: No blood thinners, No blood disorders, No bleeding, No anemia and No blood clots Neuro Neurologic: No system reviewed and no additional complaints, except as documented, No as per HPI, No abnormal gait, No abnormal hearing, No abnormal movements, No abnormal speech, No behavioral changes, No burning sensations, No confusion, No convulsions, No disequilibrium, No dizziness, No localized weakness, No frequent falls, No headache(s), No lack of coordination, No loss ofvision, No memory loss, No numbness, No other visual disturbances, No radicular pain, No restless legs, No sensory deficit, No syncope, No tingling, No tremor(s), No weakness and No other Exam Const General: cooperative Orientation: alert and oriented x3 HENMT Head: normal to inspection Neck Neck: normal visual inspection and full ROM Chest Chest palpation & inspection: normal inspection of the chest Resp Effort & Inspection: normal respiratory effort Auscultation: clear to auscultation bilaterally Cardio Rate: regular rate Rhythm: regular rhythm GI Inspection: non-distended Palpation: soft and nontender Skin General: no rashes or lesions noted Neuro General: patient alert and patient oriented x3 Extrem General: full ROM Psych Appearance: grossly normal Mental Status: mental status grossly normal Assessment and Plan Assessment and Plan (1) Breast cancer, left breast: Status: Acute Plan: Patient has breast cancer of the upper inner quadrant of the left breast. I performed an ultrasound I was able to localize the area with ultrasound. I discussed left partial mastectomy with sentinel lymph node biopsy. I discussed the procedure in detail as well as the risks including but not limited to bleeding, infection, injury other organs such as nerves or blood vessels in the axilla. Patient understands the risks and is willing to proceed. I also discussed postoperative radiation and possible chemotherapy with her. I discussed the blue dry and radiotracer and wire localization with her as well. Mohan Crow MD Pager: [facility] [address] [place] [address], [address] [place] [address] Office: Coding Level of Care Code Off vis,new,level 4 Diagnoses Breast cancer, left breast C50.912 Clinical Quality Measures Falls Risk Screening/Assistive Devices Have you fallen in the past year?: No 04/21/25 0903 <Electronically signed by Mohan sandoval MD> Date _ Mohan Crow MD Cosigner Signature: Date (if applicable) CC: Dr. Pietro Littlejohn MD ~ [facility] Work Phone: Reason for referral (narrative) Note Date & Type Note Facility Reason for referral (narrative) No reason for referral information available [facility] Work Phone: Family History No Family History Records Found Cancer Status:Active Comments:Mother. Father. gall bladder disease -- sister Status:Active Hypertension Status:Active Comments:Mother. Cancer Status:Active Comments:Mother. Father. gall bladder disease -- sister Status:Active Hypertension Status:Active Comments:Mother. Cancer Status:Active Comments:Mother. Father. gall bladder disease -- sister Status:Active Hypertension Status:Active Comments:Mother. Cancer Status:Active Comments:Mother. Father. gall bladder disease -- sister Status:Active Hypertension Status:Active Comments:Mother. Cancer Status:Active Comments:Mother. Father. gall bladder disease -- sister Status:Active Hypertension Status:Active Comments:Mother. Cancer Status:Active Comments:Mother. Father. gall bladder disease -- sister Status:Active Hypertension Status:Active Comments:Mother. Cancer Status:Active Comments:Mother. Father. gall bladder disease -- sister Status:Active Hypertension Status:Active Comments:Mother. Cancer Status:Active Comments:Mother. Father. gall bladder disease -- sister Status:Active Hypertension Status:Active Comments:Mother. Cancer Status:Active Comments:Mother. Father. gall bladder disease -- sister Status:Active Hypertension Status:Active Comments:Mother. Cancer Status:Active Comments:Mother. Father. gall bladder disease -- sister Status:Active Hypertension Status:Active Comments:Mother. Cancer Status:Active Comments:Mother. Father. gall bladder disease -- sister Status:Active Hypertension Status:Active Comments:Mother. Cancer Status:Active Comments:Mother. Father. gall bladder disease -- sister Status:Active Hypertension Status:Active Comments:Mother. Cancer Status:Active Comments:Mother. Father. gall bladder disease -- sister Status:Active Hypertension Status:Active Comments:Mother. Cancer Status:Active Comments:Mother. Father. gall bladder disease -- sister Status:Active Hypertension Status:Active Comments:Mother. Cancer Status:Active Comments:Mother. Father. gall bladder disease -- sister Status:Active Hypertension Status:Active Comments:Mother. Cancer Status:Active Comments:Mother. Father. gall bladder disease -- sister Status:Active Hypertension Status:Active Comments:Mother. Cancer Status:Active Comments:Mother. Father. gall bladder disease -- sister Status:Active Hypertension Status:Active Comments:Mother. Cancer Status:Active Comments:Mother. Father. gall bladder disease -- sister Status:Active Hypertension Status:Active Comments:Mother. Relationship Condition Age at Onset Recorded Date/T eloina mother Malignant neoplasm of breast Unknown Hypertension Unknown sister Diabetes mellitus Unknown Disorder of thyroid Unknown Summary Purpose Advance Directives No Advanced Directives Records FoundNo Advanced Directives Records FoundNo Advanced Directives Records FoundNo Advanced Directives Records Found Chief Complaint and Reason for Visit Chief Complaint Admit Date DISCUSS BREAST SURGERY April 21, 2025 8:30am Reason for Visit Admit Date Breast cancer, left breast April 21, 2025 8:30am Additional Source Comments INFORMATION SOURCE (unrecogn ized section and content) DATE CREATED AUTHOR 11/20/2024 [facility] DATE CREATED AUTHOR AUTHOR'S ORGANIZ ATION 04/22/2025 [facility] DATE CREATED AUTHOR AUTHOR'S ORGANIZ ATION 04/30/2025 [facility] DATE CREATED AUTHOR AUTHOR'S ORGANIZ ATION 05/03/2025 [facility] Care Teams (unrecognized sec tion and content) Team Status: Active Member Role/Relationship Status Dates Joel Bonds Primary care physician Active Dr. Pietro Littlejohn MD Primary care physician Active Team Status: Inactive Member Role/Relationship Status Dates Dr. Mohan Crow MD Attending physician Active Start: April 21, 2025 End: April 21, 2025 Dr. Pietro Littlejohn MD Primary care physician Active Start: April 21, 2025 End: April 21, 2025 Dr. Pietro Littlejohn MD Referring Provider Active S tart: April 21, 2025 End: April 21, 2025 Goals (unrecognized section and content) Goals may be documented in a n alternate section FOR RECORDS PERTAINING TO PATIENTS WHO ARE OR HAVE BEEN ENROLLED IN A CHEMICAL DEPENDENCY/SUBSTANCEABUSE PROGRAM, SOME INFORMATION MAY BE OMITTED. This clinical summary was aggregated from multiple sources. Caution should be exercised in using it in the provision of clinical care. This summary normalizes information from multiple sources, and as a consequence, information in this document may materially change the coding, format and clinical context of patient data. In addition, data may be omitted in some cases. CLINICAL DECISIONS SHOULD BE BASED ON THE PRIMARY CLINICAL RECORDS. [facility] [employer] [facility]. provides no warranty or guarantee of the accuracy or completeness of information in this document.
--- NOTE | 2025-05-04 11:11 | NM_ITS ---
PROCEDURE: LYMPH NODE INJECTION ONLY 05/04/2025 REASON FOR EXAM: LEFT BREAST CANCER TECHNIQUE: Procedure Code: [id number] Modality: NM Procedure: LYMPH NODE INJECTION ONLY 588 uCi of Tilmanocept injected subdermally 1 cm above the left nipple for sentinel node imaging. RADIOPHARMACEUTICAL DOSE: 580 uCi of Tilmanocept. COMPARISON: None FINDINGS: Successful subdermal injection NM/Lymph Node Injection Only IMPRESSION: Successful subdermal injection for sentinel node imaging. Reading Location: [place] [address]
[2025-05-04] MEDS: Lactated Ringers 1,000 ML 15 ML IV (11:18)
[2025-05-04] MEDS: 0.9% Saline Lock 10 ML Syringe IV (11:44)
--- NOTE | 2025-05-04 12:14 | PCM.HP.BLA ---
History and Physical Date of Admission: 05/04/25 Intake Vital Signs 04/21/2508:51 Height 5 ft 4 in Weight: 241 lb BMI 41.3 BP 134/90 H Blood Pressure Location Rt brachial Position Sitting Respiration 17 Pulse 87 Pulse Source Monitor Pulse Oximetry (%) 98 Oxygen Delivery Method room air Intake Visit Reasons: DISCUSS BREAST SURGERY Chief Complaint: discuss breast surgery Is patient in pain?: No Allergies No Known Allergies Allergy (Verified 04/21/25 08:53) Medications ?Medication ?Instructions ?Recorded ?Confirmed ?Type eye vitamins/variety PO 04/21/25 History levothyroxine 100 mcg capsule 100 mcg PO QDAY 04/21/25 04/21/25 History lisinopril 10 mg tablet 10 mg PO QDAY 04/21/25 04/21/25 History lisinopril 20 mg tablet 20 mg PO QDAY 04/21/25 04/21/25 History metaluka vitamins PO 04/21/25 04/21/25 History vitamin B comp and C no.3 15 mg-10 1 cap PO QDAY 04/21/25 04/21/25 History mg-50 mg-5 mg-300 mg capsule (B Complex Plus Vitamin C) Have you fallen in the past year?: No PFSH Medical History (Updated 04/21/25 @ 08:50 by Mayela Frias) Thyroid disease Acid reflux HTN (hypertension) Surgical History (Updated 04/21/25 @ 08:50 by Mayela Frias) H/O: hysterectomy Family History (Updated 04/21/25 @ 08:51 by Mayela Frias) Mother Breast cancer Hypertension Sister Diabetes Thyroid disorder Hypertension Social History (Updated 04/21/25 @ 08:51 by Mayela Frias) Smoking Status: Never smoker alcohol intake: never HPI HPI HPI: Patient is a 69-year-old female with left breast cancer. Patient was biopsied at outside hospital and found to have invasive ductal carcinoma of the left breast at the 10 o'clock position. Patient notes that she does have a family history of breast cancer in her mother who at a young age. She has had a breast biopsy in the past as well. ROS General General: Yes breast cancer; No weight change, appetite, fatigue, colon cancer or weakness HEENT HEENT: Yes eye surgery; No difficulty swallowing, eye injury, swollen glands or hoarseness Endo Endocrine: Yes thyroid disease; No diabetes mellitus, thyroid cancer, Hair loss, heat intolerance or cold intolerance Skin Skin: No rash or changing moles Breast Breast: Yes left breast lump and abnormal US; No right breast lump, nipple discharge, breast pain, abnormal mammogram or breast enlargement Additional Details: Left breast cancer invasive ductal Musc Musculoskeletal: No back problems, arthritis, rheumatoid arthritis, gout or joint pain Cardio Cardiovascular: Yes high blood pressure; No murmur, pacemaker, heart disease, atrial fibrillation, heart attack, heart stent, palpitations, shortness of breath with exertion or chest pain Psych Psychiatric: No depression, anxiety or hearing voices Resp Respiratory: No shortness of breath, No sleep apnea, No cough, No COPD, No asthma, No emphysema and No wheezing Gastro Gastrointestinal: No abdominal pain, No nausea or vomiting, No diarrhea, No constipation, No blood in stool, Yes acid reflux, No hemorrhoids, No ulcers, No gallbladder problem and No black,tarry stools Bao Hematologic: No blood thinners, No blood disorders, No bleeding, No anemia and No blood clots Neuro Neurologic: No system reviewed and no additional complaints, except as documented, No as per HPI, No abnormal gait, No abnormal hearing, No abnormal movements, No abnormal speech, No behavioral changes, No burning sensations, No confusion, No convulsions, No disequilibrium, No dizziness, No localized weakness, No frequent falls, No headache(s), No lack of coordination, No loss of vision, No memory loss, No numbness, No other visual disturbances, No radicular pain, No restless legs, No sensory deficit, No syncope, No tingling, No tremor(s), No weakness and No other Exam Const General: cooperative Orientation: alert and oriented x3 [facility] Head: normal to inspection Neck Neck: normal visual inspection and full ROM Chest Chest palpation & inspection: normal inspection of the chest Resp Effort & Inspection: normal respiratory effort Auscultation: clear to auscultation bilaterally Cardio Rate: regular rate Rhythm: regular rhythm GI Inspection: non-distended Palpation: soft and nontender Skin General: no rashes or lesions noted Neuro General: patient alert and patient oriented x3 Extrem General: full ROM Psych Appearance: grossly normal Mental Status: mental status grossly normal Assessment and Plan Assessment and Plan (1) Breast cancer, left breast: Status: Acute Plan: Patient has breast cancer of the upper inner quadrant of the left breast. I performed an ultrasound I was able to localize the area with ultrasound. I discussed left partial mastectomy with sentinel lymph node biopsy. I discussed the procedure in detail as well as the risks including but not limited to bleeding, infection, injury other organs such as nerves or blood vessels in the axilla. Patient understands the risks and is willing to proceed. I also discussed postoperative radiation and possible chemotherapy with her. I discussed the blue dry and radiotracer and wire localization with her as well. Mohan Crow MD Pager: [facility] [address] [place] [address] [address] [place] [address] Office: I have examined the patient and the H&P has been reviewed. There are no clinical changes since date of exam.
--- NOTE | 2025-05-04 12:30 | LYM_PTH ---
PATIENT: JESSICA ARMENDARIZ LOC: [facility] U#:[id number] AGE/SX: 69/F ROOM: RE05/04/[address]: Dr. Mohan Crow MD : 1955 BED: DIS: 05/04/2025 SPEC #: [id number] RECD: 05/04/25 13:36 STATUS: JOSE REIsrael #: [id number] MARLENI: 05/04/25 12:[address]: Mohan Crow DEPT: SURGICAL PATHOLOGY RECD BY: Phani Baker ENTERED: 05/04/25 14:33 SP TYPE: LYM NODES OTHR DR: Dr. Barber Littlejohn MD Tissues: A - Lymph node, NOS B - Lymph node, NOS C - Left breast, NOS D - Left breast, NOS E - Left breast, NOS F - Left breast, NOS G - Left breast, NOS Procedures: Frozen Section (charge) Immunohistochemical Stains Frozen Section Add'l (g) Surgery Specimen Level IV Surgery Specimen Level V IHC Stain ADDITIONAL HEADER OPERATION: Breast, lumpectomy, sentinel lymph node, blue dye and radiotracer PRE-OP DIAGNOSIS: Breast cancer, left breast TISSUE SUBMITTED: A- Left sentinel lymph node #1, B- Left sentinel lymph node #2, C- Left breast mass FROZEN SECTION DIAGNOSIS A. [place] lymph node, left, #1: #1: Negative for macrometastasis. #2: Negative for macrometastasis. B. [place] lymph node, left, #2: Negative for macrometastasis. TD/mr 05/04/2025 MICROSCOPIC DIAGNOSIS A. Left sentinel lymph node, excision: - Negative for metastasis. - IHC for pankeratin supports the histologic impression. B. Left sentinel lymph node #2, excision: * Negative for metastasis. * IHC for pankeratin supports the histologic impression. C. Left breast, mass, lumpectomy: * Invasive ductal carcinoma focally involving a surgical margin (non-designated). * Grade 1 (tubule 1, nuclear 2, mitosis 2) * DCIS (ductal carcinoma in situ), intermediate nuclear grade with comedo necrosis, < 1mm from a surgical margin (non-designated). * ER: positive (95%, strong intensity) * UT: positive (90%, intermediate to strong intensity) * HER2 IHC: equivocal (score 2+) * HER2 FISH: pending, to be reported in an addendum * Ki67: 20% * No lymphovascular invasion identified (IHC for ERG and CD31 support the histologic impression) * See Synoptic Report. D. Left breast, new posterior margin, excision: * Predominantly adipose tissue, negative for malignancy. E. Left breast, new inferior margin, excision: * Negative for malignancy. * IHC for CK5/6 and p40 support the histologic impression. F. Left breast, new superior margin, excision: * Negative for malignancy. * IHC for CK5/6 and p40 support the histologic impression. G. Left breast, new lateral margin, excision: * Negative for malignancy. * IHC for CK5/6 and p40 support the histologic impression. SYNOPTIC REPORT FOR INVASIVE BREAST CARCINOMA Specimen (P=partial, M=mastectomy):?P Laterality (R=right, L=left):?L Focality (U=unifocal, M=multifocal):?U Tumor size (cm):?1.2 x 1.0 x 0.6 cm Histologic type:?invasive ductal carcinoma of no special type Histologic grade:?1 ??? Tubule score (1-3):?1 ??? Nuclear score (1-3):?2 ??? Mitotic score (1-3):?2 Skin, nipple epidermis, skeletal muscle (I=involved, N=negative, NA=not applicable):?NA Lymphovascular invasion (E=extensive, F=focal, N=not identified):?N Margins of main specimen (P=positive, N=negative):?P Distance to closest margin of main specimen (mm):?at an undesignated margin Designation of closest margin of main specimen:?unknown Designation of other margins of main specimen </=1 mm:?NA Re-resection margin status (P=positive, N=negative, NA=not applicable):?N ? DCIS (P=present, N=not identified):?P ?? Nuclear grade:?intermediate ?? Comedo necrosis (P=present, N=not identified):?P ?? Extensive intraductal component (P=present, N=not identified):?P ?? Margins of main specimen (P=positive, N=negative):?N ?? Distance to closest margin of main specimen (mm):?< 1 mm ?? Designation of closest margin of main specimen:?undesignated ?? Designation of other margins of main specimen </=2 mm:?NA ???Longest span </= 2 mm to margin of main specimen (mm):?1 mm ?? Re-resection margin status (P=positive, N=negative, NA=not applicable):?N ? Regional lymph nodes: ?? Total number of lymph nodes:?3 ???Number of sentinel lymph nodes:?3 ?? Number with macrometastases:?0 ?? Number with micrometastases:?0 ?? Number with isolated tumor cells:?0 ???Size of largest satnam metastasis (mm):?NA ?? Size of extranodal extension (mm) (N=not identified):?NA ? Estrogen receptor:?positive (95%, strong intensity) Progesterone receptor: positive (90%, intermediate to strong intensity) HER2 IHC:?equivocal (score 2+) HER2 FISH:?pending, to be reported in an addendum Ki67: 20% Specimen in which ER/UT/HER2 performed:?[id number] pTNM:?pT1a pN0 Additional findings:?microcalcifications and focal dystrophic bone noted. Comment:?A radiograph of the breast specimen was performed to assist in the sectioning of the specimen, and the image was reviewed and correlated with the histological findings. ? The above synoptic report complies, in slightly modified form, with the guidelines of the [employer] [place] [employer] and the Association of Directors of Anatomic and Surgical Pathology for the reporting of cancer specimens. MICROSCOPIC DESCRIPTION Slides are reviewed. All matched controls reacted appropriately. These tests were developed and their performance characteristics determined by [facility]. They may not have been cleared or approved by the U.S. Food and Drug Administration. The FDA has determined that such clearance or approval is not necessary. The above immunohistochemical markers and/or special?stains have been reviewed by the Pathologist. GROSS DESCRIPTION Received in fresh for frozen section diagnosis, in containers labeled with the patient's name and date of . Designated as: A. L sentinel node are 2 noel-yellow to red lymph nodes, 2.1 x 1.0 x 0.8 cm (#1) and 1.5 x 1.2 x 0.7 cm (#2). Each lymph node is sectioned and entirely submitted for frozen section diagnosis and subsequently submitted in 2 cassettes for permanent sections as follows:A1: Lymph node #1A2: Lymph node #2 B. L sentinel node #2 is a 2.3 x 1.7 x 1.0 cm, focally disrupted lymph node. The lymph node is serially sectioned and entirely submitted for frozen section diagnosis and subsequently placed in 2 cassettes for permanent sections. C. Received fresh for intraoperative consultation, labeled with the patient's name and date of . Designated as left breast mass is a 7.8 x 5.2 x 4.2 cm lumpectomy devoid of orientation with an exposed localization wire. There is focal blue dye discoloration. The external surfaces are inked black. Sectioning reveals a 1.2 x 1.0 x 0.6 cm noel-white, indurated mass with focal, surrounding threadlike fibrosis and containing a ribbon biopsy clip and a barbell clip; the mass is located <0.1 cm from overlying inked margin. There is focal hemorrhage in a slice adjacent to the mass with a possible, 0.1 cm calcification. There are also focal, possible calcifications adjacent to the mass in the same slice. Review of postoperative imaging confirms the presence of a localization wire and ribbon biopsy clip. Rubber Off sections are submitted in 10 cassettes as follows: C1: End section, perpendicularC2: Focal hemorrhage adjacent to massC3: Focal hemorrhage adjacent to mass and possible calcificationC4: Mass with biopsy site (ribbon clip) to closest marginC5: MassC6: Mass with biopsy site (barbell clip) to closest marginC7: Mass to opposing margin and opposing margin without massC8: Possible calcifications adjacent to mass in the same sliceC9: Mass with threadlike fibrosis to closest [id number]: Fibrosis in slice adjacent to mass, and sectioned with blue dye discoloration, perpendicular Cold ischemic time: 43 minutes Formalin fixation time: 28 hours, 46 minute Received separately from parts A,B,C, are 4 formalin containers labeled with the patient's name and date of . Designated as: D. Left breast tissue-stitch whiting new posterior margin is a 5.1 x 3.3 x 0.8 cm portion of soft tissue. There is a suture designated as posterior margin. The margin is inked black. Sectioning reveals noel-yellow, fatty cut surfaces with focal congestion. No areas of fibrosis, calcification, or mass lesion are grossly appreciated. Rubber Off sections are submitted 3 cassettes.E. Left breast tissue stitch whiting new inferior margin is a 4.3 x 3.9 x 1.4 cm portion of soft tissue with focal, blue dye discoloration. There is a suture designated as inferior margin. The margin is inked blue. Sectioning reveals noel-yellow, fatty cut surfaces with focal congestion and a blue dye discoloration. No areas of fibrosis, calcification, or mass lesion are grossly appreciated. Rubber Off sections are submitted in 3 cassettes. F. Left breast tissue stitch whiting new superior margin is a 3.9 x 3.0 x 1.4 cm portion of soft tissue. There is a suture designated as superior margin. The margin is inked red. Sectioning reveals noel-yellow, fatty cut surfaces with focal congestion and focal fibrosis. No definitive calcifications or mass lesions are grossly appreciated. Rubber Off sections are submitted in 3 cassettes. G. Left breast tissue stitch whiting new lateral margin is a 4.5 x 4.1 x 1.3 cm portion of focally cauterized soft tissue with focal, blue dye discoloration. There is a suture designated as lateral margin. The margin is inked orange. Sectioning reveals noel-yellow, fatty cut surfaces with focal fibrosis and blue dye discoloration. Rubber Off sections are submitted in 5 cassettes. PARTS D-G: Cold ischemic time: UnknownFormalin fixation time: Unknown NC 05/05/2025 CPT:[id number] ADDENDUM ADDENDUM ADDENDUM ADDENDUM ADDENDUM ADDENDUM ADDENDUM ADDENDUM ADDENDUM ADDENDUM ADDENDUM ADDENDUM ADDENDUM ADDENDUM ADDENDUM ADDENDUM ADDENDUM ADDENDUM ADDENDUM ADDENDUM 05/30/2025 08:35 ADDENDUM 05/30/2025 08:35 ADDENDUM 05/30/2025 08:35 ADDENDUM 05/30/2025 08:35 ADDENDUM 05/30/2025 08:35 This addendum is added to incorporate an outside pathology consultation report. The case was examined at [facility] by Dr. Rust (#[id number]) and the following diagnosis was rendered. A. Left breast, mass, lumpectomy: HER2 FISH: Negative HER2 FISH REPORT: HER2 FISH: Negative INTERPRETATION: Tumor shows a HER2 / CEP17 ratio less than 2.0 and HER2 copy number less than 4.0 by FISH. Given the negative or 2+ HER2 IHC result, the HER2 status is negative (Group 5N). Internal and external controls show expected signal pattern. HER2 / CEP17 ratio: 1.0 HER2 copy number / cell: 3.5 Please see complete above mentioned consultation report in EMR
[2025-05-04] MEDS: Cefazolin 1 GM/5 ML Vial 2 GM IV (12:42)
--- NOTE | 2025-05-04 14:17 | BI_ITS ---
EXAM: BREAST BIOPSY SPECIMEN 05/04/2025 CLINICAL HISTORY: F, Age 69 y/o, breast specimen. TECHNIQUE: Procedure Code: BIB Modality: MG Procedure: BREAST BIOPSY SPECIMEN COMPARISON: Prior exam(s) dated March 21, 2025.. FINDINGS: TISSUE DENSITY: The breasts are almost entirely fatty Imaging of the left breast was obtained. The biopsy specimen contains the nodular density as well as the tissue clip marker. BI/Breast Biopsy Specimen IMPRESSION: OVERALL FINAL ASSESSMENT: BIRADS 6: Known Biopsy-Proven Malignancy. RECOMMENDATION: Routine annual follow-up in 1 Year Additional Recommendation none A letter with findings and recommendations will be mailed to the patient. Reading Location: [place] [address]
--- NOTE | 2025-05-04 14:22 | PCM.OPRPT ---
Operative Report (Standard) Operative Information Date of Procedure: 05/04/25 Pre-Operative Diagnosis: Left breast cancer Post-Operative Diagnosis: Left breast cancer Surgery/Procedure Performed: 1. Ultrasound-guided wire localization 2. Left partial mastectomy 3. 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 Veterinary Practice Manager: Shy Leonard Tasks completed by respiratory assistant: Opening & closing and Retracting Type of Anesthesia: General/Regional RN Documented Start/Stop Times: Operation Date: 05/04/25 12:30 Case Time Into Pre-Op 05/04/25 10:40 Anesthesia Start 05/04/25 12:30 Into Room 05/04/25 12:30 Out of Pre-Op 05/04/25 12:30 Procedure Start 05/04/25 13:00 Procedure Start Time: 13:00 Procedure Stop Time: 14:35 Select all DRAINS/GRAFTS/IMPLANTS that apply: None Estimated Blood Loss: 20 Specimen collected: Yes Description of specimen(s) removed: Left breast mass and left axillary sentinel lymph node Description of surgery: Patient was brought back to the operating room and general anesthesia was induced. The left breast was prepped and ultrasound was used to localize the mass. Next a Kopan's needle was placed into the mass and a wire was deployed. Next 5 cc of Lymphazurin was injected in the retroareolar space on the left and a massage was performed. 10 cc of saline for a chaser were used as well. The left breast and axilla were prepped and draped in usual sterile fashion. An incision was made in the left axilla and deepened to the subcutaneous tissue. Electrocautery was used for hemostasis. The axilla was entered. There was no radiotracer that made it to the axilla. I did identify 3 enlarged lymph nodes that were each dissected free using clips and sharp dissection and sent for pathology. These 3 lymph nodes came back negative. There was a blue hue to one of them. There were no other enlarged lymph nodes or blue lymph nodes in the axilla at the end of the procedure. The axilla was packed. Next an incision was marked in the breast and injected with local anesthetic. Incision was made with a scalpel and electrocautery was used for hemostasis. Flaps were raised superiorly and inferiorly. The wire was brought into the incision the mass was dissected free circumferentially using electrocautery dissection. Hemostasis was obtained using electrocautery. During the course of removing the mass I lost orientation so I was unable to orient the specimen. The cavity was irrigated and suctioned dry and there was good hemostasis. X-ray showed that the wire and clip were both removed with the mass. The skin incisions were then closed with interrupted 3-0 Vicryl suture and the skin was closed with running 4-0 Monocryl suture. Dermabond was applied to both incisions. Patient was brought to PACU in stable condition and tolerated the procedure well. Surgical Findings: Synoptic Portion: Element Response Options Operation performed with curative intent. Yes Tracer(s) used to identify sentinel nodes in the upfront surgery (non-neoadjuvant) setting (select all that apply). Dye and radiotracer Tracer(s) used to identify sentinel nodes in the neoadjuvant setting (select all that apply). N/A All nodes (colored or non-colored) present at the end of a dye-filled lymphatic channel were removed. Yes All significantly radioactive nodes were removed. Yes All palpably suspicious nodes were removed. Yes Biopsy-proven positive nodes marked with clips prior to chemotherapy were identified and removed. N/A Complications Complications: No Admit VTE Documentation VTE Mechan Device Prophylaxis: SCD's
--- NOTE | 2025-05-04 14:31 | DCINST_ITS ---
Discharge Instructions Diet Discharge Diet: Light diet - advance as tolerated Activity Discharge Activity: May Not Drive (for 2-3 days or while taking narcotic pain medications.) and May Shower May shower in (days): 1 Lifting Restrictions: 15 lbs for 1 week Additional Activity Instructions:: Alternate ibuprofen and Tylenol for pain control, oxycodone for breakthrough pain Wear tight fitting or sports bra for support for the first 2 weeks Dressing / Incision Call your doctor if your incision/area has: Continuous Slow Oozing and Increased Redness Call your doctor if you observe: Fever of 101 or Higher Suture Line Care: Avoid Pulling/Pushing and Avoid Pinching/Bending Cleanse incision/area with: Soap & Water Follow Up Care Please Follow Up With: Mohan Crow MD When: Please call to schedule 2 week follow up appointment. [phone] Test Results: Test results from this visit will be discussed in further detail at your follow- up appointment, if applicable. Discharge Plan Admission Attending Provider: Mohan Crow Primary Care Provider: Barber Littlejohn Instructions Print Language: Vincentian Discharge Orders/Prescriptions Prescriptions: New oxycodone 5 mg Tablet 5 - 10 mg PO Q4H PRN PRN (Reason: Pain Score 4-10) 5 Days Qty: 20 0RF No Action lisinopril 20 mg tablet 20 mg PO QDAY lisinopril 10 mg tablet 10 mg PO 1700 B Complex Plus Vitamin C 27-80-93-5-300 mg capsule 1 cap PO QDAY Rx Instructions: give with food (meal/snack) levothyroxine 100 mcg capsule 100 mcg PO QDAY eye vitamins/variety 1 tab PO DAILY Patient Comments: LUTEIN metaluka vitamins 1 tab PO DAILY Patient Comments: PACKET OVER 50 SUPPLEMENT HEART HEALTHY, CELL MEYER TABLET, RECOVER AL, CARDIOMEGA, PHYTOMAGA, K2-D3 Referrals / Follow Up: Barber Littlejohn MD [Primary Care Provider, Medical] Disposition Disposition (needs filled in before D/C Order can be placed): Home, Self Care
[2025-05-04] MEDS: Lidocaine 1% (5 ml sdv) 5 ML Vial 15 ML IV (14:32)
[2025-05-04] MEDS: fentaNYL 100 MCG/2 ML Ampul 25 MCG IV (14:46)
--- NOTE | 2025-05-04 15:18 | PCM.POST.ANE ---
Anesthesia: Postop Eval I Current Vital Signs Temperature: 97.8 F Pulse Rate: 89 Blood Pressure: 129/78 Respiratory Rate: 16 Pulse Ox: 94 Assessment Airway patent: Yes Spontaneous unlabored respirations: Yes nausea: No Vomiting: No Anesthesia Complication: No Fluid Hydration Crystalloid volume administer (ml): 1,500 Total IV fluid infused: 1,500 Progress Note Anesthesia document: Postop Eval 1 completed: Yes
--- NOTE | 2025-05-04 15:36 | POSTOPAN2_ITS ---
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 Spontaneous unlabored Yes 05/04/25 15:18 SEWING MACHINES [email or web address].[email or web address] respirations Mental status nausea No 05/04/25 15:18 SEWING MACHINES [email or web address].[email or web address] Vomiting No 05/04/25 15:18 SEWING MACHINES [email or web address].TNES Anesthesia Postop Eval I: Fluid Summary Crystalloid volume administer 1,500 05/04/25 15:18 SEWING MACHINES [email or web address].TNES (ml) Colloids volume administered ( ml) Blood Product volume administered (ml) Total IV fluid infused 1,500 05/04/25 15:18 SEWING MACHINES [email or web address].[email or web address] Anesthesia Postop Eval I: Summary Notes Anesthesia Complication No 05/04/25 15:18 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
--- NOTE | 2025-05-04 15:36 | PCM.POSTANE2 ---
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 Spontaneous unlabored Yes 05/04/25 15:18 SUPERVISORY AIR INTERCEPT [email or web address].[email or web address] respirations Mental status nausea No 05/04/25 15:18 SUPERVISORY AIR INTERCEPT [email or web address].[email or web address] Vomiting No 05/04/25 15:18 SUPERVISORY AIR INTERCEPT [email or web address].TNES Anesthesia Postop Eval I: Fluid Summary Crystalloid volume administer 1,500 05/04/25 15:18 SUPERVISORY AIR INTERCEPT CONTROLLER.TNES (ml) Colloids volume administered ( ml) Blood Product volume administered (ml) Total IV fluid infused 1,500 05/04/25 15:18 SUPERVISORY AIR INTERCEPT [email or web address].TNES Anesthesia Postop Eval I: Summary Notes Anesthesia Complication No 05/04/25 15:18 SUPERVISORY AIR INTERCEPT [email or web address].TNES Anesthesia Complication Comment: Post-operative progress note Anesthesia: Postop Eval II Evaluation Mental status: Awake Pain Level: 0 nausea: No Vomiting: No
== END 2025-05-04 17:30 | disposition home or self-care (01) ==
LOC: SDC 10:31 → AC 10:33
PROVIDERS: PCP Family Medicine; Referring Provider Surgery; Visit Provider Surgery
PROC: 0HBV0ZZ Excision of Bilateral Breast, Open Approach (ICD-10-PCS; CPT 19302; principal; 2025-05-04 12:15)
DX: C50.912 Malignant neoplasm of unspecified site of left female breast (principal); I10 Essential (primary) hypertension; Z80.3 Family history of malignant neoplasm of breast; K21.9 Gastro-esophageal reflux disease without esophagitis; Z79.899 Other long term (current) drug therapy
CPT/HCPCS: 19301; 38525; 19285; 38792; 76098; 88305; 88307; 88331; 88332; 88341; 88342; A4648; A9520; A4216; J2405; Q9968

== ENCOUNTER → 2025-06-23 | Outpatient (CLI) | payer MEDICARE, OTHER, SELFPAY ==
--- NOTE | 2025-06-23 11:00 | BD_ITS ---
PROCEDURE: DEXA BONE DENSITY STUDY 06/23/2025 REASON FOR EXAM: BREAST CA F, age 69 y/o . Postmenopausal. TECHNIQUE: Procedure Code: BDDBD Modality: DX Procedure: DEXA BONE DENSITY STUDY COMPARISON: None FINDINGS: BMD and T-SCORES Lumbar spine: 0.972 g/cm2, T-score -1.0 Levels: L1 through L4 Left femoral neck: 0.852 g/cm2, T-score 0.0 Femoral neck comparison data not recommended for monitoring change. Left total hip: 0.976 g/cm2, T-score 0.3 Right femoral neck: 0.802 g/cm2, T-score -0.4 Femoral neck comparison data not recommended for monitoring change. Right total hip: 0.937 g/cm2, T-score 0.0 The World Health Organization has defined the following categories based on bone density: Normal bone density: T-score equal to or greater than -1.0 Osteopenia: T-score between -1.0 and -2.5 Osteoporosis: T-score equal to or less than -2.5 FRAX (or Comparable) Fracture Risk Assessment: 10 Year Probability of Fracture: Major Osteoporotic Fracture: 6.9% Hip Fracture: 0.5% (Note: FRAX is not to be reported in setting of normal range bone density, osteoporosis on DEXA, known history of osteoporosis, prior osteoporotic hip or vertebral fracture, or for any patient undergoing pharmacological treatment for bone loss.) The National Osteoporosis Foundation (NOF) recommends pharmacological treatment for patients with a FRAX 10-year risk of 3% or higher for a hip fracture, or 20% or higher for a major osteoporotic fracture, to prevent osteoporosis and reduce fracture risk. The patient does not meet the pharmacological treatment recommendations for prevention of osteoporosis. BD/Dexa Bone Density Study IMPRESSION: NORMAL T-SCORES. Recommend follow-up as clinically warranted. Reading Location: [place] [address]
--- NOTE | 2025-06-23 11:45 | RAD_ITS ---
PROCEDURE: CHEST PA AND LATERAL 06/23/2025 REASON FOR EXAM: BREAST CA TECHNIQUE: Procedure Code: RADCXR Modality: DX Procedure: CHEST PA AND LATERAL COMPARISON: None available. FINDINGS: Hardware: None Heart: The heart size is normal. Mediastinum: The mediastinal contour is unremarkable. Lungs: The lungs are clear. No pneumothorax or pleural effusion. Bones: The bones are unremarkable. RAD/Chest PA and Lateral IMPRESSION: NO ACUTE FINDINGS. Reading [facility]
== END | disposition home or self-care (01) ==
PROVIDERS: PCP Family Medicine; Referring Provider Internal Medicine Medical Oncology; Visit Provider Internal Medicine Medical Oncology
DX: Z13.820 Encounter for screening for osteoporosis (principal); C50.212 Malignant neoplasm of upper-inner quadrant of left female breast; Z17.0 Estrogen receptor positive status [ER+]; Z78.0 Asymptomatic menopausal state
CPT/HCPCS: 71046; 77080